=== PATIENT | male | born 1930 | race Caucasian/White ===

== ENCOUNTER 2021-05-24 23:32 | Inpatient (IN) | payer MEDICARE, MEDICAID ==
[2021-05-24] MEDS ORDERED: Norepinephrine 8 MG/0.9% NS 250 ML ONE (23:52)
[2021-05-25 00:01] LABS: Actual Bicarbonate (HCO3a) 19.5 mEq/L (22-28); Analyzer IN Cardio ER; Base Excess (BEa) -7.9 mEq/L (-2.0 to +3.0); CO2 Tension 49.2 mmHg (35.0-45.0); Calcium, Ionized (arterial) 1.04 mmol/L (1.12-1.30); Carboxyhemoglobin (COHb) 0.3 gm% (0.0-3.0); Hemoglobin (Hb) 8.8 g/dL (14.0-18.0); O2 Tension (PaO2), arterial 65.3 mmHg (> 60.0); Potassium - ABG Lab 3.49 mmol/L (3.70-5.30)
[2021-05-25 00:02] LABS: #Basophils 0.1 thou/uL (0.0-0.2); #Monocytes 0.1 thou/uL (0.11-0.59); #Neutrophils 3.7 thou/uL (1.40-6.50); %Basophils 1.2 % (0.0-1.0); %Eosinophils 0.2 % (0.0-10.0); %Lymphocytes 20.2 % (21.0-51.0); %Monocytes 2.9 % (0.0-10.0); %Neutrophils 75.5 % (42.0-75.0); Hemoglobin 8.9 g/dL (14.0-18.0); Mean Corpuscular HGB CONC 32.9 g/dL (32.0-36.0); Mean Corpuscular Hemoglobin 31.9 pg (27.0-31.0); Mean Platelet Volume 8.7 fL (7.4-10.4); Platelet Count 128 thou/uL (130-400); RBC Distribution Width 14.7 % (11.5-14.5); Red Blood Cell (RBC) Count 2.78 mill/uL (4.70-6.10); White Blood Cell (WBC) Count 4.8 thou/uL (4.8-10.8)
[2021-05-25 00:15] LABS: INR-International Normal Ratio 1.4; PTT 43.2 sec (22.9-36.1); Prothrombin Time 17.2 sec (12.0-14.7)
[2021-05-25 00:16] LABS: D-Dimer Test 0.67 *mcg/mL (0.27-0.43)
[2021-05-25 00:33] LABS: ALT (SGPT) 17 U/L (8-55); AST (SGOT) 33 U/L (5-34); Albumin 3.1 g/dL (3.4-4.8); Alkaline Phosphatase 80 U/L (40-110); Anion Gap 22 mmol/L (10-20); BUN (Urea Nitrogen) 67 mg/dL (8.4-25.7); Bilirubin, Total 0.3 mg/dL (0.2-1.2); CK (CPK) 287 U/L (30-200); Calc. Creatinine Clearance 0 mL/min (70-130); Calcium 8.2 mg/dL (7.8-10.44); Carbon Dioxide 19 mmol/L (23-31); Chloride 101 mmol/L (98-107); Globulin 4.7 g/dL (2.4-3.5); Glucose 297 mg/dL (83-110); Lipase 42 U/L (8-78); Magnesium 1.7 mg/dL (1.6-2.6); Potassium 3.6 mmol/L (3.5-5.1); Protein, Total 7.8 g/dL (5.8-8.1); Sodium 138 mmol/L (136-145)
[2021-05-25 00:47] LABS: CKMB 4.8 ng/mL (0-6.6)
[2021-05-25 01:02] LABS: Puncture Site LRA; pH, Arterial 7.22 (7.35-7.45)
[2021-05-25 01:02] LABS: Amphetamine Not Detected (NotDetected); Barbiturates Screen Not Detected (NotDetected); Benzodiazepine Screen Not Detected (NotDetected); Cocaine Metabolite Screen Not Detected (NotDetected); Methadone Not Detected (NotDetected); Methamphetamine Not Detected (NotDetected); Opiate Screen Not Detected (NotDetected); Oxycodone Screen Not Detected (NotDetected); Phencyclidine (PCP) Not Detected (NotDetected); THC/Cannabinoid Screen Not Detected (NotDetected); Tricyclic Screen Not Detected (NotDetected)
[2021-05-25 01:06] LABS: Bilirubin Negative (Negative); Blood, Urine 2+ (Negative); Clarity Turbid (Clear); Glucose, Urine (Dipstick) 30 mg/dL (Negative); Ketone, Urine Negative (Negative); Leukocyte Negative Leu/uL (Negative); Mucous/LPF Rare LPF (<2+); Nitrite Negative (Negative); Protein, Urine (Dipstick) 300 mg/dL (Neg-Trace); Specific Gravity, Urine 1.019 (1.002-1.036); Squamous Epithelial 0-3 HPF (0-3); Urobilinogen Normal mg/dL (Less than 2)
[2021-05-25 01:29] LABS: Bacteria/HPF 2+ HPF (None Seen)
[2021-05-25 01:42] LABS: SARS-CoV-2 NAA Rapid Test DETECTED (NotDetected)
[2021-05-25 02:03] LABS: Actual Bicarbonate (HCO3a) 22.5 mEq/L (22-28); Analyzer IN Cardio ER; Base Excess (BEa) -2.3 mEq/L (-2.0 to +3.0); CO2 Tension 38.9 mmHg (35.0-45.0); Calcium, Ionized (arterial) 1.03 mmol/L (1.12-1.30); Carboxyhemoglobin (COHb) 0.3 gm% (0.0-3.0); Hemoglobin (Hb) 9.2 g/dL (14.0-18.0); O2 Tension (PaO2), arterial 85.1 mmHg (> 60.0); Potassium - ABG Lab 3.61 mmol/L (3.70-5.30); pH, Arterial 7.38 (7.35-7.45)
[2021-05-25] MEDS ORDERED: cefTRIAXone\\ROCEPHIN 1 GM VIAL ONE (02:03)
[2021-05-25] MEDS ORDERED: Dexamethasone 10 MG/ML VIAL ONE (02:03)
[2021-05-25 02:08] LABS: Puncture Site RRA
[2021-05-25 02:09] LABS: ALV-art Gradient 579.275 mmHg (0-20)
[2021-05-25] MEDS ORDERED: Ondansetron PF 4 MG/2 ML Vial IVP PRN (03:09)
[2021-05-25 03:19] LABS: Lactic Acid 2.1 mmol/L (0.5-2.2)
[2021-05-25 07:44] LABS: #Lymphocytes 0.4 thou/uL (1.20-3.40); #Monocytes 0.1 thou/uL (0.11-0.59); #Neutrophils 3.4 thou/uL (1.40-6.50); %Basophils 0.4 % (0.0-1.0); %Eosinophils 0.2 % (0.0-10.0); %Lymphocytes 9.8 % (21.0-51.0); %Monocytes 2.2 % (0.0-10.0); %Neutrophils 87.4 % (42.0-75.0); Hemoglobin 9.6 g/dL (14.0-18.0); Mean Corpuscular HGB CONC 33.4 g/dL (32.0-36.0); Mean Corpuscular Hemoglobin 32.3 pg (27.0-31.0); Mean Corpuscular Volume 96.6 fL (78.0-98.0); Mean Platelet Volume 8.7 fL (7.4-10.4); Platelet Count 121 thou/uL (130-400); RBC Distribution Width 14.5 % (11.5-14.5); Red Blood Cell (RBC) Count 2.96 mill/uL (4.70-6.10); White Blood Cell (WBC) Count 3.9 thou/uL (4.8-10.8)
[2021-05-25 08:10] LABS: ALT (SGPT) 16 U/L (8-55); AST (SGOT) 32 U/L (5-34); Albumin 3.1 g/dL (3.4-4.8); Alkaline Phosphatase 80 U/L (40-110); Anion Gap 17 mmol/L (10-20); BUN (Urea Nitrogen) 63 mg/dL (8.4-25.7); Bilirubin, Total 0.3 mg/dL (0.2-1.2); Calc. Creatinine Clearance 22 mL/min (70-130); Calcium 7.9 mg/dL (7.8-10.44); Carbon Dioxide 24 mmol/L (23-31); Chloride 102 mmol/L (98-107); Globulin 4.7 g/dL (2.4-3.5); Glucose 270 mg/dL (83-110); Protein, Total 7.8 g/dL (5.8-8.1); Sodium 139 mmol/L (136-145)
[2021-05-25] MEDS ORDERED: Enoxaparin Sodium 30 MG/0.3 ML SYRINGE SC SCH (09:00)
[2021-05-25] MEDS ORDERED: Dexamethasone 10 MG in Sodium Chloride 0.9% 50 ML IVPB SCH (09:00)
[2021-05-25] MEDS ORDERED: Albumin 25% 25 GM/100 ML BOT IVPB SCH (09:30)
[2021-05-25] MEDS: Polyethylene Glycol 3350 17 GM Packet PER TUBE SCH (09:33)
[2021-05-25] MEDS: Senokot S 8.6-50 MG TAB PO SCH ×2 (09:33→21:24)
[2021-05-25] MEDS: Famotidine/PF 20 mg/2ml Vial SLOW IVP SCH (09:33)
[2021-05-25] MEDS: Albumin 25% 25 GM/100 ML BOT IVPB SCH ×3 (09:35→21:24)
[2021-05-25] MEDS ORDERED: Lorazepam 2 MG/ML VIAL ONE (10:19)
[2021-05-25] MEDS: Dexamethasone 10 MG/ML VIAL SLOW IVP SCH ×2 (11:37→21:30)
[2021-05-25] MEDS ORDERED: Lorazepam 2 MG/ML VIAL SLOW IVP SCH (11:45)
[2021-05-25] MEDS ORDERED: Fentanyl BOLUS 250 ML IVPB PRN (11:45)
[2021-05-25] MEDS ORDERED: Propofol BOLUS 1,000 MG/100 ML VIAL IV PRN (11:45)
[2021-05-25] MEDS ORDERED: Morphine 2 MG/ML VIAL SLOW IVP PRN (11:45)
[2021-05-25] MEDS ORDERED: Norepinephrine 8 MG/0.9% NS 250 ML IVPB SCH (11:45)
[2021-05-25] MEDS ORDERED: Vecuronium 10 MG VIAL IV PRN (12:29)
[2021-05-25] MEDS: Lorazepam 2 MG/ML VIAL SLOW IVP PRN ×3 (12:34→16:10)
[2021-05-25] MEDS: Propofol 1,000 MG/100 ML VIAL IV PRN ×2 (13:36→17:50)
[2021-05-25] MEDS: Fentanyl CADD 100 ML IV SCH (13:36)
[2021-05-25] MEDS: Vecuronium 10 MG VIAL IV PRN ×2 (13:40→21:31)
[2021-05-25] MEDS: HumaLOG 300 UNITS/3 ML VIAL SC PRN ×3 (14:28→21:52)
[2021-05-25 14:45] LABS: Hemoglobin A1c 8.4 % (4.0-6.0)
[2021-05-25 19:17] LABS: Legionella Urinary Ag Negative (Negative); Strep pneumo Urine Ag NEGATIVE (NEGATIVE)
[2021-05-25] MEDS: Sterile Water 10 ML ONE (22:24)
[2021-05-26] MEDS: Propofol 1,000 MG/100 ML VIAL IV PRN ×3 (00:51→22:46)
[2021-05-26] MEDS: HumaLOG 300 UNITS/3 ML VIAL SC PRN ×5 (01:11→23:21)
[2021-05-26] MEDS ORDERED: cefTRIAXone\\ROCEPHIN 2 GM in Sodium Chloride 0.9% 100 ML IVPB SCH (02:00)
[2021-05-26] MEDS: Albumin 25% 25 GM/100 ML BOT IVPB SCH ×4 (03:57→21:25)
[2021-05-26 04:41] LABS: #Lymphocytes 0.4 thou/uL (1.20-3.40); #Monocytes 0.1 thou/uL (0.11-0.59); #Neutrophils 11.5 thou/uL (1.40-6.50); %Lymphocytes 3.3 % (21.0-51.0); %Neutrophils 95.7 % (42.0-75.0); Hemoglobin 8.8 g/dL (14.0-18.0); Mean Corpuscular HGB CONC 33.5 g/dL (32.0-36.0); Mean Corpuscular Hemoglobin 32.2 pg (27.0-31.0); Mean Platelet Volume 9.4 fL (7.4-10.4); Platelet Count 145 thou/uL (130-400); RBC Distribution Width 14.5 % (11.5-14.5); Red Blood Cell (RBC) Count 2.73 mill/uL (4.70-6.10); White Blood Cell (WBC) Count 12.1 thou/uL (4.8-10.8)
[2021-05-26 05:06] LABS: ALT (SGPT) 12 U/L (8-55); AST (SGOT) 25 U/L (5-34); Albumin 3.6 g/dL (3.4-4.8); Alkaline Phosphatase 71 U/L (40-110); Anion Gap 17 mmol/L (10-20); BUN (Urea Nitrogen) 60 mg/dL (8.4-25.7); Bilirubin, Total 0.4 mg/dL (0.2-1.2); CRP (Inflammatory) 18.31 mg/dL (= or < 0.5); Calc. Creatinine Clearance 24 mL/min (70-130); Calcium 8.1 mg/dL (7.8-10.44); Carbon Dioxide 23 mmol/L (23-31); Chloride 104 mmol/L (98-107); Globulin 4.5 g/dL (2.4-3.5); Glucose 217 mg/dL (83-110); Magnesium 1.8 mg/dL (1.6-2.6); Potassium 3.5 mmol/L (3.5-5.1); Protein, Total 8.1 g/dL (5.8-8.1); Sodium 140 mmol/L (136-145)
[2021-05-26 05:15] LABS: Phosphorus 3.6 mg/dL (2.3-4.7)
[2021-05-26] MEDS: NPH, Human Insulin Isophane 300 UNIT/3 ML VIAL SC SCH ×2 (08:45→21:24)
[2021-05-26] MEDS: Famotidine/PF 20 mg/2ml Vial SLOW IVP SCH (09:15)
[2021-05-26] MEDS: Polyethylene Glycol 3350 17 GM Packet PER TUBE SCH (09:17)
[2021-05-26] MEDS: Cefepime 1 GM in Sodium Chloride 0.9% 100 ML IVPB SCH (09:17)
[2021-05-26] MEDS: Dexamethasone 10 MG/ML VIAL SLOW IVP SCH ×2 (09:17→21:25)
[2021-05-26] MEDS: Senokot S 8.6-50 MG TAB PO SCH ×2 (09:17→21:25)
[2021-05-26] MEDS: Aspirin Chewable 81 MG TAB PER TUBE SCH (09:17)
[2021-05-26] MEDS: Azithromycin 200 MG/5 ML Oral Suspension PER TUBE SCH (09:17)
[2021-05-26] MEDS: Lorazepam 2 MG/ML VIAL SLOW IVP PRN (10:24)
[2021-05-26] MEDS: Vecuronium 10 MG VIAL IV PRN ×3 (10:24→18:01)
[2021-05-26] MEDS ORDERED: Sterile Water 10 ML ONE (17:50)
[2021-05-26] MEDS: Sterile Water 10 ML ONE (18:01)
[2021-05-26] MEDS ORDERED: Carvedilol 3.125 MG TAB PER TUBE SCH ×2 (22:00)
[2021-05-27] MEDS: Albumin 25% 25 GM/100 ML BOT IVPB SCH ×2 (03:23→10:11)
[2021-05-27] MEDS: Fentanyl CADD 100 ML IV SCH (04:56)
[2021-05-27] MEDS: Propofol 1,000 MG/100 ML VIAL IV PRN ×3 (04:56→19:06)
[2021-05-27] MEDS: HumaLOG 300 UNITS/3 ML VIAL SC PRN ×3 (05:07→21:26)
[2021-05-27 05:11] LABS: Alkaline Phosphatase 64 U/L (40-110); Anion Gap 17 mmol/L (10-20); BUN (Urea Nitrogen) 61 mg/dL (8.4-25.7); Bilirubin, Total 0.4 mg/dL (0.2-1.2); Calc. Creatinine Clearance 26 mL/min (70-130); Calcium 8.4 mg/dL (7.8-10.44); Carbon Dioxide 26 mmol/L (23-31); Chloride 104 mmol/L (98-107); Globulin 4.1 g/dL (2.4-3.5); Glucose 251 mg/dL (83-110); Phosphorus 3.6 mg/dL (2.3-4.7); Potassium 3.6 mmol/L (3.5-5.1); Protein, Total 8.1 g/dL (5.8-8.1); Sodium 143 mmol/L (136-145)
[2021-05-27 05:49] LABS: ALT (SGPT) 12 U/L (8-55); AST (SGOT) 18 U/L (5-34); Magnesium 1.8 mg/dL (1.6-2.6)
[2021-05-27 06:13] LABS: Lymphocytes 8 % (21-51); MDiff Complete? YES; Mean Corpuscular HGB CONC 31.9 g/dL (32.0-36.0); Mean Corpuscular Volume 84.9 fL (78.0-98.0); Mean Platelet Volume 8.7 fL (7.4-10.4); Monocytes 2 % (0-10); Neutrophil 90 % (42-75); Platelet Count 268 thou/uL (130-400); Platelet Morphology Comment Appears Adequate; RBC Distribution Width 19.8 % (11.5-14.5); Red Blood Cell (RBC) Count 3.32 mill/uL (4.70-6.10); White Blood Cell (WBC) Count 14.4 thou/uL (4.8-10.8)
[2021-05-27 08:14] LABS: Actual Bicarbonate (HCO3a) 24.8 mEq/L (22-28); Base Excess (BEa) -0.7 mEq/L (-2.0 to +3.0); CO2 Tension 45.1 mmHg (35.0-45.0); Calcium, Ionized (arterial) 1.06 mmol/L (1.12-1.30); Carboxyhemoglobin (COHb) 0.8 gm% (0.0-3.0); Hemoglobin (Hb) 9.4 g/dL (14.0-18.0); Potassium - ABG Lab 3.76 mmol/L (3.70-5.30); pH, Arterial 7.36 (7.35-7.45)
[2021-05-27 08:17] LABS: O2 Tension (PaO2), arterial 50.7 mmHg (> 60.0); Puncture Site LRA
[2021-05-27 08:18] LABS: ALV-art Gradient 320.725 mmHg (0-20)
[2021-05-27] MEDS: Senokot S 8.6-50 MG TAB PO SCH ×2 (10:11→20:34)
[2021-05-27] MEDS: Dexamethasone 10 MG/ML VIAL SLOW IVP SCH ×2 (10:11→20:34)
[2021-05-27] MEDS: Cefepime 1 GM in Sodium Chloride 0.9% 100 ML IVPB SCH (10:12)
[2021-05-27] MEDS: Polyethylene Glycol 3350 17 GM Packet PER TUBE SCH (10:12)
[2021-05-27] MEDS: Aspirin Chewable 81 MG TAB PER TUBE SCH (10:12)
[2021-05-27] MEDS: Carvedilol 3.125 MG TAB PER TUBE SCH ×2 (10:12→17:02)
[2021-05-27] MEDS: Famotidine/PF 20 mg/2ml Vial SLOW IVP SCH (10:12)
[2021-05-27] MEDS: NPH, Human Insulin Isophane 300 UNIT/3 ML VIAL SC SCH ×3 (10:13→21:26)
[2021-05-27] MEDS: Azithromycin 200 MG/5 ML Oral Suspension PER TUBE SCH (10:13)
[2021-05-27] MEDS ORDERED: Sterile Water 10 ML ONE (11:30)
[2021-05-27] MEDS: Lorazepam 2 MG/ML VIAL SLOW IVP PRN (11:50)
[2021-05-27] MEDS: Vecuronium 10 MG VIAL IV PRN (11:51)
[2021-05-27] MEDS: Apixaban 2.5 MG TAB PER TUBE SCH (20:34)
[2021-05-28] MEDS: Propofol 1,000 MG/100 ML VIAL IV PRN ×5 (01:14→23:32)
[2021-05-28] MEDS: HumaLOG 300 UNITS/3 ML VIAL SC PRN ×4 (03:35→22:01)
[2021-05-28 05:01] LABS: #Lymphocytes 0.5 thou/uL (1.20-3.40); #Monocytes 0.2 thou/uL (0.11-0.59); #Neutrophils 9.7 thou/uL (1.40-6.50); %Basophils 0.1 % (0.0-1.0); %Eosinophils 0.4 % (0.0-10.0); %Lymphocytes 4.8 % (21.0-51.0); %Neutrophils 92.6 % (42.0-75.0); Hemoglobin 8.6 g/dL (14.0-18.0); Mean Corpuscular HGB CONC 34.5 g/dL (32.0-36.0); Mean Corpuscular Hemoglobin 32.6 pg (27.0-31.0); Mean Corpuscular Volume 94.6 fL (78.0-98.0); Mean Platelet Volume 9.3 fL (7.4-10.4); Platelet Count 174 thou/uL (130-400); RBC Distribution Width 14.7 % (11.5-14.5); Red Blood Cell (RBC) Count 2.64 mill/uL (4.70-6.10); White Blood Cell (WBC) Count 10.4 thou/uL (4.8-10.8)
[2021-05-28 05:18] LABS: ALT (SGPT) 12 U/L (8-55); AST (SGOT) 23 U/L (5-34); Albumin 3.8 g/dL (3.4-4.8); Alkaline Phosphatase 60 U/L (40-110); Anion Gap 17 mmol/L (10-20); BUN (Urea Nitrogen) 67 mg/dL (8.4-25.7); Bilirubin, Total 0.4 mg/dL (0.2-1.2); Calc. Creatinine Clearance 28 mL/min (70-130); Calcium 8.4 mg/dL (7.8-10.44); Carbon Dioxide 27 mmol/L (23-31); Chloride 106 mmol/L (98-107); Glucose 241 mg/dL (83-110); Magnesium 2.2 mg/dL (1.6-2.6); Phosphorus 3.2 mg/dL (2.3-4.7); Potassium 3.9 mmol/L (3.5-5.1); Protein, Total 7.8 g/dL (5.8-8.1); Sodium 146 mmol/L (136-145)
[2021-05-28 07:40] LABS: Actual Bicarbonate (HCO3a) 30.3 mEq/L (22-28); Base Excess (BEa) 4.8 mEq/L (-2.0 to +3.0); CO2 Tension 50.8 mmHg (35.0-45.0); Calcium, Ionized (arterial) 1.04 mmol/L (1.12-1.30); Carboxyhemoglobin (COHb) 0.5 gm% (0.0-3.0); Hemoglobin (Hb) 8.5 g/dL (14.0-18.0); Potassium - ABG Lab 3.87 mmol/L (3.70-5.30); pH, Arterial 7.39 (7.35-7.45)
[2021-05-28 08:21] LABS: O2 Tension (PaO2), arterial 57.2 mmHg (> 60.0); Puncture Site RRA
[2021-05-28] MEDS: Carvedilol 3.125 MG TAB PER TUBE SCH ×2 (08:37→16:01)
[2021-05-28] MEDS: Cefepime 1 GM in Sodium Chloride 0.9% 100 ML IVPB SCH (08:37)
[2021-05-28] MEDS: Aspirin Chewable 81 MG TAB PER TUBE SCH (08:37)
[2021-05-28] MEDS: Polyethylene Glycol 3350 17 GM Packet PER TUBE SCH (08:37)
[2021-05-28] MEDS: Senokot S 8.6-50 MG TAB PO SCH ×2 (08:37→21:14)
[2021-05-28] MEDS: Dexamethasone 10 MG/ML VIAL SLOW IVP SCH ×2 (08:37→21:20)
[2021-05-28] MEDS: Apixaban 2.5 MG TAB PER TUBE SCH ×2 (08:37→21:14)
[2021-05-28] MEDS: Azithromycin 200 MG/5 ML Oral Suspension PER TUBE SCH (08:38)
[2021-05-28] MEDS: Famotidine/PF 20 mg/2ml Vial SLOW IVP SCH (08:38)
[2021-05-28] MEDS ORDERED: FLU VACC QS2021-22(65YR UP)/PF 240 MCG/0.7 ML SYRINGE IM ONE (09:00)
[2021-05-28] MEDS: NPH, Human Insulin Isophane 300 UNIT/3 ML VIAL SC SCH ×2 (11:02→23:32)
[2021-05-28 11:15] LABS: Mycoplasma pneumoniae IgG AB Less than 100 U/mL (0-99); Mycoplasma pneumoniae IgM AB Less than 770 U/mL (0-769)
[2021-05-28] MEDS: Fentanyl CADD 100 ML IV SCH (12:43)
[2021-05-29 03:56] LABS: ALT (SGPT) 13 U/L (8-55); AST (SGOT) 17 U/L (5-34); Albumin 3.7 g/dL (3.4-4.8); Alkaline Phosphatase 59 U/L (40-110); Anion Gap 16 mmol/L (10-20); BUN (Urea Nitrogen) 73 mg/dL (8.4-25.7); Bilirubin, Total 0.4 mg/dL (0.2-1.2); Calc. Creatinine Clearance 33 mL/min (70-130); Calcium 8.6 mg/dL (7.8-10.44); Carbon Dioxide 29 mmol/L (23-31); Chloride 108 mmol/L (98-107); Globulin 4.2 g/dL (2.4-3.5); Glucose 171 mg/dL (83-110); Magnesium 2.3 mg/dL (1.6-2.6); Phosphorus 3.5 mg/dL (2.3-4.7); Potassium 4.1 mmol/L (3.5-5.1); Protein, Total 7.9 g/dL (5.8-8.1); Sodium 149 mmol/L (136-145)
[2021-05-29] MEDS: Propofol 1,000 MG/100 ML VIAL IV PRN ×4 (04:31→20:44)
[2021-05-29 05:17] LABS: Band 7 % (5-11); Hemoglobin 8.6 g/dL (14.0-18.0); Lymphocytes 3 % (21-51); MDiff Complete? YES; Mean Corpuscular HGB CONC 33.3 g/dL (32.0-36.0); Mean Corpuscular Hemoglobin 31.7 pg (27.0-31.0); Mean Corpuscular Volume 95.3 fL (78.0-98.0); Mean Platelet Volume 9.3 fL (7.4-10.4); Monocytes 2 % (0-10); Neutrophil 88 % (42-75); Platelet Count 211 thou/uL (130-400); RBC Distribution Width 14.5 % (11.5-14.5); White Blood Cell (WBC) Count 10.8 thou/uL (4.8-10.8)
[2021-05-29 07:13] LABS: Actual Bicarbonate (HCO3a) 25.7 mEq/L (22-28); Base Excess (BEa) 0.4 mEq/L (-2.0 to +3.0); Calcium, Ionized (arterial) 1.12 mmol/L (1.12-1.30); Carboxyhemoglobin (COHb) 1.2 gm% (0.0-3.0); Hemoglobin (Hb) 7.6 g/dL (14.0-18.0); O2 Tension (PaO2), arterial 78.9 mmHg (> 60.0); Potassium - ABG Lab 4.05 mmol/L (3.70-5.30); pH, Arterial 7.38 (7.35-7.45)
[2021-05-29 07:16] LABS: Puncture Site RRA
[2021-05-29] MEDS: Dexamethasone 10 MG/ML VIAL SLOW IVP SCH ×2 (08:10→20:47)
[2021-05-29] MEDS: Apixaban 2.5 MG TAB PER TUBE SCH ×2 (08:10→20:45)
[2021-05-29] MEDS: Senokot S 8.6-50 MG TAB PO SCH ×2 (08:10→20:44)
[2021-05-29] MEDS: Cefepime 1 GM in Sodium Chloride 0.9% 100 ML IVPB SCH (08:10)
[2021-05-29] MEDS: Famotidine/PF 20 mg/2ml Vial SLOW IVP SCH (08:10)
[2021-05-29] MEDS: Polyethylene Glycol 3350 17 GM Packet PER TUBE SCH (08:10)
[2021-05-29] MEDS: Aspirin Chewable 81 MG TAB PER TUBE SCH (08:10)
[2021-05-29] MEDS: Carvedilol 3.125 MG TAB PER TUBE SCH ×2 (09:53→16:31)
[2021-05-29] MEDS: NPH, Human Insulin Isophane 300 UNIT/3 ML VIAL SC SCH ×2 (11:37→23:02)
[2021-05-29] MEDS: HumaLOG 300 UNITS/3 ML VIAL SC PRN ×3 (11:39→22:18)
[2021-05-30] MEDS: Fentanyl CADD 100 ML IV SCH (02:10)
[2021-05-30] MEDS: Propofol 1,000 MG/100 ML VIAL IV PRN ×4 (02:26→18:00)
[2021-05-30 04:07] LABS: #Lymphocytes 0.4 thou/uL (1.20-3.40); #Monocytes 0.2 thou/uL (0.11-0.59); #Neutrophils 8.4 thou/uL (1.40-6.50); %Eosinophils 0.2 % (0.0-10.0); %Lymphocytes 4.7 % (21.0-51.0); %Monocytes 1.8 % (0.0-10.0); %Neutrophils 93.2 % (42.0-75.0); Hemoglobin 8.2 g/dL (14.0-18.0); Mean Corpuscular HGB CONC 33.4 g/dL (32.0-36.0); Mean Corpuscular Hemoglobin 31.9 pg (27.0-31.0); Mean Corpuscular Volume 95.6 fL (78.0-98.0); Mean Platelet Volume 9.5 fL (7.4-10.4); Platelet Count 211 thou/uL (130-400); RBC Distribution Width 14.6 % (11.5-14.5); Red Blood Cell (RBC) Count 2.56 mill/uL (4.70-6.10)
[2021-05-30 04:12] LABS: QuantiFERON-TB Gold Plus Indeterminate (Negative)
[2021-05-30 04:31] LABS: ALT (SGPT) 11 U/L (8-55); AST (SGOT) 14 U/L (5-34); Albumin 3.5 g/dL (3.4-4.8); Alkaline Phosphatase 58 U/L (40-110); Anion Gap 17 mmol/L (10-20); BUN (Urea Nitrogen) 87 mg/dL (8.4-25.7); Bilirubin, Total 0.4 mg/dL (0.2-1.2); Calc. Creatinine Clearance 34 mL/min (70-130); Calcium 8.7 mg/dL (7.8-10.44); Carbon Dioxide 27 mmol/L (23-31); Chloride 110 mmol/L (98-107); Glucose 212 mg/dL (83-110); Magnesium 2.6 mg/dL (1.6-2.6); Phosphorus 3.6 mg/dL (2.3-4.7); Potassium 4.2 mmol/L (3.5-5.1); Protein, Total 7.5 g/dL (5.8-8.1); Sodium 150 mmol/L (136-145)
[2021-05-30] MEDS: HumaLOG 300 UNITS/3 ML VIAL SC PRN ×3 (04:33→23:31)
[2021-05-30 08:09] LABS: Actual Bicarbonate (HCO3a) 28.3 mEq/L (22-28); Base Excess (BEa) 2.3 mEq/L (-2.0 to +3.0); CO2 Tension 51.3 mmHg (35.0-45.0); Carboxyhemoglobin (COHb) 0.3 gm% (0.0-3.0); Hemoglobin (Hb) 8.5 g/dL (14.0-18.0); O2 Tension (PaO2), arterial 78.9 mmHg (> 60.0); Potassium - ABG Lab 4.28 mmol/L (3.70-5.30); pH, Arterial 7.36 (7.35-7.45)
[2021-05-30] MEDS: Famotidine/PF 20 mg/2ml Vial SLOW IVP SCH (09:23)
[2021-05-30] MEDS: Cefepime 1 GM in Sodium Chloride 0.9% 100 ML IVPB SCH (09:23)
[2021-05-30] MEDS: Carvedilol 3.125 MG TAB PER TUBE SCH ×2 (09:23→15:51)
[2021-05-30] MEDS: Senokot S 8.6-50 MG TAB PO SCH ×2 (09:24→20:36)
[2021-05-30] MEDS: Dexamethasone 10 MG/ML VIAL SLOW IVP SCH ×2 (09:24→20:37)
[2021-05-30] MEDS: Polyethylene Glycol 3350 17 GM Packet PER TUBE SCH (09:24)
[2021-05-30] MEDS: Apixaban 2.5 MG TAB PER TUBE SCH ×2 (09:24→20:36)
[2021-05-30] MEDS: Aspirin Chewable 81 MG TAB PER TUBE SCH (09:24)
[2021-05-30] MEDS: NPH, Human Insulin Isophane 300 UNIT/3 ML VIAL SC SCH ×2 (10:59→22:56)
[2021-05-30] MEDS: Dextrose 5% in Water 1,000 ML IV SCH (22:55)
[2021-05-31] MEDS: Propofol 1,000 MG/100 ML VIAL IV PRN ×4 (00:08→14:41)
[2021-05-31 04:37] LABS: #Lymphocytes 0.4 thou/uL (1.20-3.40); #Monocytes 0.2 thou/uL (0.11-0.59); #Neutrophils 8.9 thou/uL (1.40-6.50); %Eosinophils 0.2 % (0.0-10.0); %Monocytes 2.1 % (0.0-10.0); %Neutrophils 93.7 % (42.0-75.0); Hemoglobin 8.4 g/dL (14.0-18.0); Mean Corpuscular HGB CONC 31.2 g/dL (32.0-36.0); Mean Corpuscular Hemoglobin 30.3 pg (27.0-31.0); Mean Corpuscular Volume 97.1 fL (78.0-98.0); Mean Platelet Volume 9.4 fL (7.4-10.4); Platelet Count 222 thou/uL (130-400); RBC Distribution Width 14.5 % (11.5-14.5); Red Blood Cell (RBC) Count 2.78 mill/uL (4.70-6.10); White Blood Cell (WBC) Count 9.5 thou/uL (4.8-10.8)
[2021-05-31 04:54] LABS: ALT (SGPT) 16 U/L (8-55); AST (SGOT) 18 U/L (5-34); Albumin 3.4 g/dL (3.4-4.8); Alkaline Phosphatase 57 U/L (40-110); Anion Gap 17 mmol/L (10-20); BUN (Urea Nitrogen) 100 mg/dL (8.4-25.7); Bilirubin, Total 0.4 mg/dL (0.2-1.2); Calc. Creatinine Clearance 34 mL/min (70-130); Calcium 8.4 mg/dL (7.8-10.44); Carbon Dioxide 28 mmol/L (23-31); Chloride 109 mmol/L (98-107); Glucose 215 mg/dL (83-110); Magnesium 2.6 mg/dL (1.6-2.6); Phosphorus 4.3 mg/dL (2.3-4.7); Potassium 4.6 mmol/L (3.5-5.1); Protein, Total 7.4 g/dL (5.8-8.1); Sodium 149 mmol/L (136-145)
[2021-05-31] MEDS: HumaLOG 300 UNITS/3 ML VIAL SC PRN ×3 (05:18→21:27)
[2021-05-31 07:55] LABS: Base Excess (BEa) 2.2 mEq/L (-2.0 to +3.0); Calcium, Ionized (arterial) 1.05 mmol/L (1.12-1.30); Carboxyhemoglobin (COHb) 0.4 gm% (0.0-3.0); Hemoglobin (Hb) 8.1 g/dL (14.0-18.0); O2 Tension (PaO2), arterial 79.5 mmHg (> 60.0); pH, Arterial 7.31 (7.35-7.45)
[2021-05-31 08:23] LABS: Puncture Site RRA
[2021-05-31] MEDS: Fentanyl CADD 100 ML IV SCH (08:32)
[2021-05-31] MEDS: Lorazepam 2 MG/ML VIAL SLOW IVP PRN ×2 (08:32→17:33)
[2021-05-31] MEDS: Cefepime 1 GM in Sodium Chloride 0.9% 100 ML IVPB SCH (08:32)
[2021-05-31] MEDS: Famotidine/PF 20 mg/2ml Vial SLOW IVP SCH (08:33)
[2021-05-31] MEDS: Apixaban 2.5 MG TAB PER TUBE SCH ×2 (08:33→21:04)
[2021-05-31] MEDS: Senokot S 8.6-50 MG TAB PO SCH ×2 (08:33→21:03)
[2021-05-31] MEDS: Aspirin Chewable 81 MG TAB PER TUBE SCH (08:33)
[2021-05-31] MEDS: Polyethylene Glycol 3350 17 GM Packet PER TUBE SCH (08:33)
[2021-05-31] MEDS: Carvedilol 3.125 MG TAB PER TUBE SCH ×2 (09:33→17:23)
[2021-05-31] MEDS: Dextrose 5% in Water 1,000 ML IV SCH ×2 (09:33→21:04)
[2021-05-31] MEDS: Dexamethasone 10 MG/ML VIAL SLOW IVP SCH ×2 (10:31→21:04)
[2021-05-31] MEDS: NPH, Human Insulin Isophane 300 UNIT/3 ML VIAL SC SCH ×2 (10:59→23:11)
[2021-06-01] MEDS: Propofol 1,000 MG/100 ML VIAL IV PRN ×5 (01:55→23:58)
[2021-06-01 04:31] LABS: #Lymphocytes 0.4 thou/uL (1.20-3.40); #Monocytes 0.2 thou/uL (0.11-0.59); #Neutrophils 7.5 thou/uL (1.40-6.50); %Eosinophils 0.4 % (0.0-10.0); %Lymphocytes 4.7 % (21.0-51.0); %Monocytes 2.5 % (0.0-10.0); %Neutrophils 92.5 % (42.0-75.0); Mean Corpuscular HGB CONC 31.1 g/dL (32.0-36.0); Mean Corpuscular Hemoglobin 30.4 pg (27.0-31.0); Mean Corpuscular Volume 97.7 fL (78.0-98.0); Mean Platelet Volume 9.1 fL (7.4-10.4); Platelet Count 216 thou/uL (130-400); RBC Distribution Width 14.6 % (11.5-14.5); Red Blood Cell (RBC) Count 2.63 mill/uL (4.70-6.10); White Blood Cell (WBC) Count 8.1 thou/uL (4.8-10.8)
[2021-06-01 05:03] LABS: ALT (SGPT) 15 U/L (8-55); AST (SGOT) 14 U/L (5-34); Albumin 3.2 g/dL (3.4-4.8); Alkaline Phosphatase 53 U/L (40-110); Anion Gap 13 mmol/L (10-20); BUN (Urea Nitrogen) 88 mg/dL (8.4-25.7); Bilirubin, Total 0.3 mg/dL (0.2-1.2); Calc. Creatinine Clearance 40 mL/min (70-130); Carbon Dioxide 29 mmol/L (23-31); Chloride 104 mmol/L (98-107); Globulin 3.8 g/dL (2.4-3.5); Glucose 386 mg/dL (83-110); Magnesium 2.3 mg/dL (1.6-2.6); Phosphorus 4.1 mg/dL (2.3-4.7); Potassium 4.8 mmol/L (3.5-5.1); Sodium 141 mmol/L (136-145)
[2021-06-01] MEDS: Lorazepam 2 MG/ML VIAL SLOW IVP PRN ×2 (05:05→15:44)
[2021-06-01] MEDS: HumaLOG 300 UNITS/3 ML VIAL SC PRN ×2 (05:05→22:26)
[2021-06-01] MEDS: Dextrose 5% in Water 1,000 ML IV SCH (05:05)
[2021-06-01 07:55] LABS: Actual Bicarbonate (HCO3a) 28.6 mEq/L (22-28); CO2 Tension 56.2 mmHg (35.0-45.0); Calcium, Ionized (arterial) 1.07 mmol/L (1.12-1.30); Carboxyhemoglobin (COHb) 0.1 gm% (0.0-3.0); Hemoglobin (Hb) 8.2 g/dL (14.0-18.0); O2 Tension (PaO2), arterial 80.1 mmHg (> 60.0); Potassium - ABG Lab 4.74 mmol/L (3.70-5.30); pH, Arterial 7.32 (7.35-7.45)
[2021-06-01 08:21] LABS: Puncture Site RRA
[2021-06-01] MEDS: Senokot S 8.6-50 MG TAB PO SCH ×2 (09:25→21:44)
[2021-06-01] MEDS: Aspirin Chewable 81 MG TAB PER TUBE SCH (09:25)
[2021-06-01] MEDS: Polyethylene Glycol 3350 17 GM Packet PER TUBE SCH (09:25)
[2021-06-01] MEDS: Famotidine/PF 20 mg/2ml Vial SLOW IVP SCH (09:26)
[2021-06-01] MEDS: Apixaban 2.5 MG TAB PER TUBE SCH ×2 (09:26→21:44)
[2021-06-01] MEDS: Dexamethasone 10 MG/ML VIAL SLOW IVP SCH ×2 (09:26→21:44)
[2021-06-01] MEDS: Cefepime 1 GM in Sodium Chloride 0.9% 100 ML IVPB SCH (09:28)
[2021-06-01] MEDS: Carvedilol 3.125 MG TAB PER TUBE SCH ×2 (10:19→17:13)
[2021-06-01] MEDS: NPH, Human Insulin Isophane 300 UNIT/3 ML VIAL SC SCH ×2 (10:52→22:25)
[2021-06-02] MEDS: HumaLOG 300 UNITS/3 ML VIAL SC PRN ×3 (04:15→22:43)
[2021-06-02] MEDS: Propofol 1,000 MG/100 ML VIAL IV PRN ×5 (05:48→22:48)
[2021-06-02 07:27] LABS: Actual Bicarbonate (HCO3a) 29.2 mEq/L (22-28); Base Excess (BEa) 2.3 mEq/L (-2.0 to +3.0); Calcium, Ionized (arterial) 1.11 mmol/L (1.12-1.30); Carboxyhemoglobin (COHb) 0.3 gm% (0.0-3.0); Hemoglobin (Hb) 9.5 g/dL (14.0-18.0); pH, Arterial 7.32 (7.35-7.45)
[2021-06-02 07:28] LABS: Puncture Site RRA
[2021-06-02] MEDS: Famotidine/PF 20 mg/2ml Vial SLOW IVP SCH (08:15)
[2021-06-02] MEDS: Polyethylene Glycol 3350 17 GM Packet PER TUBE SCH (08:15)
[2021-06-02] MEDS: Dexamethasone 10 MG/ML VIAL SLOW IVP SCH ×2 (08:15→20:40)
[2021-06-02] MEDS: Apixaban 2.5 MG TAB PER TUBE SCH ×2 (08:16→20:39)
[2021-06-02] MEDS: Carvedilol 3.125 MG TAB PER TUBE SCH ×2 (08:16→15:53)
[2021-06-02] MEDS: Aspirin Chewable 81 MG TAB PER TUBE SCH (08:16)
[2021-06-02] MEDS: Senokot S 8.6-50 MG TAB PO SCH ×2 (08:16→20:39)
[2021-06-02] MEDS: Cefepime 1 GM in Sodium Chloride 0.9% 100 ML IVPB SCH (08:18)
[2021-06-02 09:21] LABS: Anion Gap 10 mmol/L (10-20); BUN (Urea Nitrogen) 85 mg/dL (8.4-25.7); Calc. Creatinine Clearance 48 mL/min (70-130); Calcium 7.6 mg/dL (7.8-10.44); Carbon Dioxide 26 mmol/L (23-31); Chloride 110 mmol/L (98-107); Glucose 172 mg/dL (83-110); Potassium 4.3 mmol/L (3.5-5.1); Sodium 142 mmol/L (136-145)
[2021-06-02] MEDS: NPH, Human Insulin Isophane 300 UNIT/3 ML VIAL SC SCH ×2 (11:40→22:42)
[2021-06-03] MEDS: Propofol 1,000 MG/100 ML VIAL IV PRN ×5 (03:31→20:26)
[2021-06-03] MEDS: HumaLOG 300 UNITS/3 ML VIAL SC PRN ×4 (04:00→22:28)
[2021-06-03 04:48] LABS: #Lymphocytes 0.4 thou/uL (1.20-3.40); #Monocytes 0.4 thou/uL (0.11-0.59); #Neutrophils 8.9 thou/uL (1.40-6.50); %Eosinophils 0.3 % (0.0-10.0); %Lymphocytes 3.6 % (21.0-51.0); %Monocytes 4.5 % (0.0-10.0); %Neutrophils 91.6 % (42.0-75.0); Hemoglobin 7.6 g/dL (14.0-18.0); Mean Corpuscular HGB CONC 33.6 g/dL (32.0-36.0); Mean Corpuscular Hemoglobin 31.8 pg (27.0-31.0); Mean Corpuscular Volume 94.7 fL (78.0-98.0); Mean Platelet Volume 9.3 fL (7.4-10.4); Platelet Count 224 thou/uL (130-400); RBC Distribution Width 14.6 % (11.5-14.5); Red Blood Cell (RBC) Count 2.39 mill/uL (4.70-6.10); White Blood Cell (WBC) Count 9.7 thou/uL (4.8-10.8)
[2021-06-03 05:19] LABS: ALT (SGPT) 19 U/L (8-55); AST (SGOT) 14 U/L (5-34); Alkaline Phosphatase 53 U/L (40-110); Anion Gap 12 mmol/L (10-20); BUN (Urea Nitrogen) 101 mg/dL (8.4-25.7); Bilirubin, Total 0.4 mg/dL (0.2-1.2); Calc. Creatinine Clearance 46 mL/min (70-130); Calcium 8.1 mg/dL (7.8-10.44); Carbon Dioxide 30 mmol/L (23-31); Chloride 106 mmol/L (98-107); Globulin 3.8 g/dL (2.4-3.5); Glucose 188 mg/dL (83-110); Magnesium 2.3 mg/dL (1.6-2.6); Potassium 4.8 mmol/L (3.5-5.1); Protein, Total 6.8 g/dL (5.8-8.1); Sodium 143 mmol/L (136-145)
[2021-06-03 07:50] LABS: Actual Bicarbonate (HCO3a) 27.8 mEq/L (22-28); Base Excess (BEa) 2.4 mEq/L (-2.0 to +3.0); CO2 Tension 47.4 mmHg (35.0-45.0); Calcium, Ionized (arterial) 1.09 mmol/L (1.12-1.30); Carboxyhemoglobin (COHb) 0.3 gm% (0.0-3.0); Hemoglobin (Hb) 8.9 g/dL (14.0-18.0); O2 Tension (PaO2), arterial 68.4 mmHg (> 60.0); Potassium - ABG Lab 4.57 mmol/L (3.70-5.30); pH, Arterial 7.39 (7.35-7.45)
[2021-06-03] MEDS: Famotidine/PF 20 mg/2ml Vial SLOW IVP SCH (08:05)
[2021-06-03] MEDS: Senokot S 8.6-50 MG TAB PO SCH ×2 (08:05→20:25)
[2021-06-03 08:06] LABS: Puncture Site RRA
[2021-06-03] MEDS: Aspirin Chewable 81 MG TAB PER TUBE SCH (08:06)
[2021-06-03] MEDS: Polyethylene Glycol 3350 17 GM Packet PER TUBE SCH (08:06)
[2021-06-03] MEDS: Carvedilol 3.125 MG TAB PER TUBE SCH ×2 (08:06→16:14)
[2021-06-03] MEDS: Apixaban 2.5 MG TAB PER TUBE SCH ×2 (08:06→20:26)
[2021-06-03] MEDS: Cefepime 1 GM in Sodium Chloride 0.9% 100 ML IVPB SCH (08:10)
[2021-06-03] MEDS: Dexamethasone 10 MG/ML VIAL SLOW IVP SCH ×2 (08:14→20:25)
[2021-06-03] MEDS: NPH, Human Insulin Isophane 300 UNIT/3 ML VIAL SC SCH ×2 (11:38→22:28)
[2021-06-03] MEDS: Sodium Chloride 0.45% 1,000 ML IV SCH (14:21)
[2021-06-04] MEDS: Propofol 1,000 MG/100 ML VIAL IV PRN ×6 (04:32→23:08)
[2021-06-04] MEDS: Aspirin Chewable 81 MG TAB PER TUBE SCH (08:51)
[2021-06-04] MEDS: Apixaban 2.5 MG TAB PER TUBE SCH ×2 (08:52→20:30)
[2021-06-04] MEDS: Polyethylene Glycol 3350 17 GM Packet PER TUBE SCH (08:52)
[2021-06-04] MEDS: Famotidine/PF 20 mg/2ml Vial SLOW IVP SCH (08:52)
[2021-06-04] MEDS: Senokot S 8.6-50 MG TAB PO SCH ×2 (08:52→20:30)
[2021-06-04] MEDS: Dexamethasone 10 MG/ML VIAL SLOW IVP SCH ×2 (08:52→20:30)
[2021-06-04] MEDS: Carvedilol 3.125 MG TAB PER TUBE SCH ×2 (08:52→16:12)
[2021-06-04] MEDS: Cefepime 1 GM in Sodium Chloride 0.9% 100 ML IVPB SCH (08:52)
[2021-06-04] MEDS: Sodium Chloride 0.45% 1,000 ML IV SCH (08:56)
[2021-06-04 09:00] LABS: #Lymphocytes 0.4 thou/uL (1.20-3.40); #Monocytes 0.2 thou/uL (0.11-0.59); #Neutrophils 6.6 thou/uL (1.40-6.50); %Eosinophils 0.3 % (0.0-10.0); %Lymphocytes 5.4 % (21.0-51.0); %Monocytes 2.9 % (0.0-10.0); %Neutrophils 91.4 % (42.0-75.0); Hemoglobin 7.5 g/dL (14.0-18.0); Mean Corpuscular HGB CONC 31.9 g/dL (32.0-36.0); Mean Corpuscular Hemoglobin 30.6 pg (27.0-31.0); Mean Corpuscular Volume 95.9 fL (78.0-98.0); Mean Platelet Volume 9.1 fL (7.4-10.4); Platelet Count 214 thou/uL (130-400); RBC Distribution Width 14.6 % (11.5-14.5); Red Blood Cell (RBC) Count 2.45 mill/uL (4.70-6.10); White Blood Cell (WBC) Count 7.2 thou/uL (4.8-10.8)
[2021-06-04 09:31] LABS: ALT (SGPT) 21 U/L (8-55); AST (SGOT) 14 U/L (5-34); Albumin 2.8 g/dL (3.4-4.8); Alkaline Phosphatase 50 U/L (40-110); Anion Gap 18 mmol/L (10-20); BUN (Urea Nitrogen) 109 mg/dL (8.4-25.7); Bilirubin, Total 0.3 mg/dL (0.2-1.2); Calc. Creatinine Clearance 47 mL/min (70-130); Calcium 8.4 mg/dL (7.8-10.44); Carbon Dioxide 21 mmol/L (23-31); Chloride 107 mmol/L (98-107); Glucose 191 mg/dL (83-110); Magnesium 2.2 mg/dL (1.6-2.6); Potassium 5.2 mmol/L (3.5-5.1); Protein, Total 6.8 g/dL (5.8-8.1); Sodium 141 mmol/L (136-145)
[2021-06-04] MEDS: HumaLOG 300 UNITS/3 ML VIAL SC PRN (10:15)
[2021-06-04] MEDS: NPH, Human Insulin Isophane 300 UNIT/3 ML VIAL SC SCH ×2 (11:18→23:21)
[2021-06-05] MEDS: Propofol 1,000 MG/100 ML VIAL IV PRN ×5 (02:21→20:51)
[2021-06-05] MEDS: HumaLOG 300 UNITS/3 ML VIAL SC PRN ×4 (03:30→22:11)
[2021-06-05 04:15] LABS: Band 2 % (5-11); Hemoglobin 8.3 g/dL (14.0-18.0); Hypochromia SLIGHT = 6-15 cells (100X) (0-5/hpf); Lymphocytes 6 % (21-51); MDiff Complete? YES; Mean Corpuscular HGB CONC 33.5 g/dL (32.0-36.0); Mean Corpuscular Hemoglobin 32.1 pg (27.0-31.0); Mean Corpuscular Volume 95.8 fL (78.0-98.0); Mean Platelet Volume 9.6 fL (7.4-10.4); Monocytes 3 % (0-10); Neutrophil 89 % (42-75); Platelet Count 214 thou/uL (130-400); Platelet Morphology Comment Appears Adequate; RBC Distribution Width 14.6 % (11.5-14.5); Red Blood Cell (RBC) Count 2.58 mill/uL (4.70-6.10); White Blood Cell (WBC) Count 11.1 thou/uL (4.8-10.8)
[2021-06-05 04:21] LABS: ALT (SGPT) 21 U/L (8-55); AST (SGOT) 16 U/L (5-34); Albumin 3.1 g/dL (3.4-4.8); Alkaline Phosphatase 58 U/L (40-110); Anion Gap 16 mmol/L (10-20); BUN (Urea Nitrogen) 116 mg/dL (8.4-25.7); Bilirubin, Total 0.4 mg/dL (0.2-1.2); Calc. Creatinine Clearance 50 mL/min (70-130); Calcium 8.3 mg/dL (7.8-10.44); Carbon Dioxide 26 mmol/L (23-31); Chloride 105 mmol/L (98-107); Glucose 172 mg/dL (83-110); Magnesium 2.3 mg/dL (1.6-2.6); Potassium 4.9 mmol/L (3.5-5.1); Protein, Total 7.1 g/dL (5.8-8.1); Sodium 142 mmol/L (136-145)
[2021-06-05] MEDS: Sodium Chloride 0.45% 1,000 ML IV SCH ×2 (05:07→23:44)
[2021-06-05 07:49] LABS: Actual Bicarbonate (HCO3a) 26.6 mEq/L (22-28); Base Excess (BEa) 1.3 mEq/L (-2.0 to +3.0); CO2 Tension 45.3 mmHg (35.0-45.0); Calcium, Ionized (arterial) 1.11 mmol/L (1.12-1.30); Carboxyhemoglobin (COHb) 0.3 gm% (0.0-3.0); Hemoglobin (Hb) 8.4 g/dL (14.0-18.0); O2 Tension (PaO2), arterial 75.4 mmHg (> 60.0); Potassium - ABG Lab 4.69 mmol/L (3.70-5.30); pH, Arterial 7.39 (7.35-7.45)
[2021-06-05 07:52] LABS: ALV-art Gradient 153.175 mmHg (0-20); Puncture Site LRA
[2021-06-05] MEDS: Dexamethasone 10 MG/ML VIAL SLOW IVP SCH (08:46)
[2021-06-05] MEDS: Famotidine/PF 20 mg/2ml Vial SLOW IVP SCH (08:46)
[2021-06-05] MEDS: Apixaban 2.5 MG TAB PER TUBE SCH ×2 (08:46→20:51)
[2021-06-05] MEDS: Aspirin Chewable 81 MG TAB PER TUBE SCH (08:46)
[2021-06-05] MEDS: Carvedilol 3.125 MG TAB PER TUBE SCH ×2 (08:47→16:58)
[2021-06-05] MEDS: Polyethylene Glycol 3350 17 GM Packet PER TUBE SCH (08:48)
[2021-06-05] MEDS: Senokot S 8.6-50 MG TAB PO SCH ×2 (08:48→20:51)
[2021-06-05] MEDS: Cefepime 1 GM in Sodium Chloride 0.9% 100 ML IVPB SCH (08:52)
[2021-06-05] MEDS: NPH, Human Insulin Isophane 300 UNIT/3 ML VIAL SC SCH ×2 (09:24→21:30)
[2021-06-06] MEDS: Propofol 1,000 MG/100 ML VIAL IV PRN ×2 (03:02→15:31)
[2021-06-06 04:53] LABS: ALT (SGPT) 25 U/L (8-55); AST (SGOT) 17 U/L (5-34); Albumin 2.9 g/dL (3.4-4.8); Alkaline Phosphatase 54 U/L (40-110); Anion Gap 14 mmol/L (10-20); BUN (Urea Nitrogen) 110 mg/dL (8.4-25.7); Bilirubin, Total 0.3 mg/dL (0.2-1.2); Calc. Creatinine Clearance 52 mL/min (70-130); Calcium 8.5 mg/dL (7.8-10.44); Carbon Dioxide 26 mmol/L (23-31); Chloride 107 mmol/L (98-107); Globulin 3.8 g/dL (2.4-3.5); Glucose 124 mg/dL (83-110); Magnesium 2.1 mg/dL (1.6-2.6); Potassium 4.3 mmol/L (3.5-5.1); Protein, Total 6.7 g/dL (5.8-8.1); Sodium 143 mmol/L (136-145)
[2021-06-06 05:17] LABS: Band 1 % (5-11); Elliptocytes SLIGHT = 2-5 cells (100X) (0-1/hpf); Hemoglobin 7.5 g/dL (14.0-18.0); Hypochromia SLIGHT = 6-15 cells (100X) (0-5/hpf); Lymphocytes 6 % (21-51); MDiff Complete? YES; Mean Corpuscular HGB CONC 33.9 g/dL (32.0-36.0); Mean Corpuscular Hemoglobin 32.3 pg (27.0-31.0); Mean Corpuscular Volume 95.1 fL (78.0-98.0); Mean Platelet Volume 9.7 fL (7.4-10.4); Monocytes 7 % (0-10); Myelocyte 1 % (0-0); Neutrophil 85 % (42-75); Platelet Count 217 thou/uL (130-400); Platelet Morphology Comment Appears Adequate; Polychromasia SLIGHT = 2-3 cells (100X) (0-2/hpf); RBC Distribution Width 14.7 % (11.5-14.5); Red Blood Cell (RBC) Count 2.31 mill/uL (4.70-6.10); White Blood Cell (WBC) Count 9.5 thou/uL (4.8-10.8)
[2021-06-06 07:53] LABS: Actual Bicarbonate (HCO3a) 26.8 mEq/L (22-28); Base Excess (BEa) 1.7 mEq/L (-2.0 to +3.0); CO2 Tension 45.2 mmHg (35.0-45.0); Calcium, Ionized (arterial) 1.14 mmol/L (1.12-1.30); Carboxyhemoglobin (COHb) 0.1 gm% (0.0-3.0); Hemoglobin (Hb) 6.5 g/dL (14.0-18.0); O2 Tension (PaO2), arterial 69.2 mmHg (> 60.0); Potassium - ABG Lab 4.15 mmol/L (3.70-5.30); pH, Arterial 7.39 (7.35-7.45)
[2021-06-06 07:56] LABS: Puncture Site LRA
[2021-06-06] MEDS: Aspirin Chewable 81 MG TAB PER TUBE SCH (08:25)
[2021-06-06] MEDS: Apixaban 2.5 MG TAB PER TUBE SCH ×2 (08:26→21:11)
[2021-06-06] MEDS: Senokot S 8.6-50 MG TAB PO SCH ×2 (08:26→21:11)
[2021-06-06] MEDS: Carvedilol 3.125 MG TAB PER TUBE SCH ×2 (08:26→16:22)
[2021-06-06] MEDS: Famotidine/PF 20 mg/2ml Vial SLOW IVP SCH (08:27)
[2021-06-06] MEDS: Polyethylene Glycol 3350 17 GM Packet PER TUBE SCH (08:27)
[2021-06-06] MEDS: Dexamethasone 10 MG/ML VIAL SLOW IVP SCH (08:28)
[2021-06-06] MEDS ORDERED: Dexamethasone 10 MG/ML VIAL SLOW IVP SCH (09:00)
[2021-06-06] MEDS: NPH, Human Insulin Isophane 300 UNIT/3 ML VIAL SC SCH (10:58)
[2021-06-06] MEDS: Dextrose 50% Abboject 50 ML SYRINGE ONE ×2 (13:36→14:15)
[2021-06-06] MEDS ORDERED: Dextrose 50% Abboject 50 ML SYRINGE IVP PRN (14:00)
[2021-06-06] MEDS ORDERED: Dextrose 5% in Water 1,000 ML IV PRN (14:00)
[2021-06-06] MEDS: Sodium Chloride 0.45% 1,000 ML IV SCH (18:07)
[2021-06-06] MEDS: Guaifenesin DM 100-10/5 ML UDCUP PO PRN (18:08)
[2021-06-07] MEDS: Propofol 1,000 MG/100 ML VIAL IV PRN (03:22)
[2021-06-07 04:09] LABS: #Lymphocytes 0.8 thou/uL (1.20-3.40); #Monocytes 0.4 thou/uL (0.11-0.59); %Basophils 0.2 % (0.0-1.0); %Eosinophils 0.4 % (0.0-10.0); %Lymphocytes 8.9 % (21.0-51.0); %Monocytes 4.2 % (0.0-10.0); %Neutrophils 86.3 % (42.0-75.0); Hemoglobin 7.8 g/dL (14.0-18.0); Mean Corpuscular HGB CONC 33.9 g/dL (32.0-36.0); Mean Corpuscular Hemoglobin 32.3 pg (27.0-31.0); Mean Corpuscular Volume 95.3 fL (78.0-98.0); Mean Platelet Volume 9.4 fL (7.4-10.4); Platelet Count 217 thou/uL (130-400); RBC Distribution Width 14.7 % (11.5-14.5); Red Blood Cell (RBC) Count 2.43 mill/uL (4.70-6.10); White Blood Cell (WBC) Count 9.3 thou/uL (4.8-10.8)
[2021-06-07 04:30] LABS: ALT (SGPT) 23 U/L (8-55); AST (SGOT) 16 U/L (5-34); Albumin 2.9 g/dL (3.4-4.8); Alkaline Phosphatase 57 U/L (40-110); Anion Gap 11 mmol/L (10-20); BUN (Urea Nitrogen) 99 mg/dL (8.4-25.7); Bilirubin, Total 0.3 mg/dL (0.2-1.2); Calc. Creatinine Clearance 58 mL/min (70-130); Calcium 8.8 mg/dL (7.8-10.44); Carbon Dioxide 28 mmol/L (23-31); Chloride 108 mmol/L (98-107); Globulin 3.7 g/dL (2.4-3.5); Glucose 105 mg/dL (83-110); Potassium 4.4 mmol/L (3.5-5.1); Protein, Total 6.6 g/dL (5.8-8.1); Sodium 143 mmol/L (136-145)
[2021-06-07 07:01] LABS: Actual Bicarbonate (HCO3a) 27.3 mEq/L (22-28); Base Excess (BEa) 2.5 mEq/L (-2.0 to +3.0); CO2 Tension 43.6 mmHg (35.0-45.0); Calcium, Ionized (arterial) 1.14 mmol/L (1.12-1.30); Carboxyhemoglobin (COHb) 0.4 gm% (0.0-3.0); O2 Tension (PaO2), arterial 60.1 mmHg (> 60.0); Potassium - ABG Lab 4.09 mmol/L (3.70-5.30); pH, Arterial 7.42 (7.35-7.45)
[2021-06-07 07:07] LABS: Puncture Site RRA
[2021-06-07] MEDS ORDERED: DC Sedation Protocol FS ONE (07:45)
[2021-06-07] MEDS: Carvedilol 3.125 MG TAB PER TUBE SCH ×2 (07:55→16:59)
[2021-06-07] MEDS: Famotidine/PF 20 mg/2ml Vial SLOW IVP SCH (08:02)
[2021-06-07] MEDS: Dexamethasone 10 MG/ML VIAL SLOW IVP SCH (08:02)
[2021-06-07] MEDS: Aspirin Chewable 81 MG TAB PER TUBE SCH (08:03)
[2021-06-07] MEDS: Senokot S 8.6-50 MG TAB PO SCH ×2 (08:03→20:09)
[2021-06-07] MEDS: Apixaban 2.5 MG TAB PER TUBE SCH ×2 (08:03→20:09)
[2021-06-07] MEDS: Polyethylene Glycol 3350 17 GM Packet PER TUBE SCH (08:45)
[2021-06-07] MEDS: Guaifenesin DM 100-10/5 ML UDCUP PO PRN (08:51)
[2021-06-07] MEDS: Sodium Chloride 0.45% 1,000 ML IV SCH (16:59)
[2021-06-08 05:38] LABS: #Eosinphils 0.1 thou/uL (0.0-0.7); #Lymphocytes 0.8 thou/uL (1.20-3.40); #Monocytes 0.7 thou/uL (0.11-0.59); #Neutrophils 8.5 thou/uL (1.40-6.50); %Basophils 0.1 % (0.0-1.0); %Eosinophils 0.9 % (0.0-10.0); %Lymphocytes 8.2 % (21.0-51.0); %Monocytes 6.5 % (0.0-10.0); %Neutrophils 84.3 % (42.0-75.0); Hemoglobin 8.3 g/dL (14.0-18.0); Mean Corpuscular HGB CONC 33.6 g/dL (32.0-36.0); Mean Corpuscular Hemoglobin 31.9 pg (27.0-31.0); Mean Platelet Volume 9.4 fL (7.4-10.4); Platelet Count 225 thou/uL (130-400); RBC Distribution Width 14.6 % (11.5-14.5); White Blood Cell (WBC) Count 10.1 thou/uL (4.8-10.8)
[2021-06-08 06:09] LABS: ALT (SGPT) 27 U/L (8-55); AST (SGOT) 20 U/L (5-34); Albumin 2.9 g/dL (3.4-4.8); Alkaline Phosphatase 61 U/L (40-110); Anion Gap 11 mmol/L (10-20); BUN (Urea Nitrogen) 89 mg/dL (8.4-25.7); Bilirubin, Total 0.4 mg/dL (0.2-1.2); Calc. Creatinine Clearance 55 mL/min (70-130); Calcium 8.9 mg/dL (7.8-10.44); Carbon Dioxide 29 mmol/L (23-31); Chloride 108 mmol/L (98-107); Globulin 3.9 g/dL (2.4-3.5); Glucose 88 mg/dL (83-110); Magnesium 1.8 mg/dL (1.6-2.6); Protein, Total 6.8 g/dL (5.8-8.1); Sodium 144 mmol/L (136-145)
[2021-06-08] MEDS: Polyethylene Glycol 3350 17 GM Packet PER TUBE SCH (09:18)
[2021-06-08] MEDS: Dexamethasone 10 MG/ML VIAL SLOW IVP SCH (09:18)
[2021-06-08] MEDS: Aspirin Chewable 81 MG TAB PER TUBE SCH (09:18)
[2021-06-08] MEDS: Carvedilol 3.125 MG TAB PER TUBE SCH ×2 (09:18→18:18)
[2021-06-08] MEDS: Famotidine/PF 20 mg/2ml Vial SLOW IVP SCH (09:18)
[2021-06-08] MEDS: Senokot S 8.6-50 MG TAB PO SCH ×2 (09:18→20:35)
[2021-06-08] MEDS: Apixaban 2.5 MG TAB PER TUBE SCH ×2 (09:18→20:35)
[2021-06-08] MEDS: Sodium Chloride 0.45% 1,000 ML IV SCH (14:58)
[2021-06-09 03:40] LABS: #Lymphocytes 0.8 thou/uL (1.20-3.40); #Monocytes 0.2 thou/uL (0.11-0.59); #Neutrophils 9.3 thou/uL (1.40-6.50); %Basophils 0.2 % (0.0-1.0); %Eosinophils 0.4 % (0.0-10.0); %Lymphocytes 7.4 % (21.0-51.0); Mean Corpuscular HGB CONC 33.6 g/dL (32.0-36.0); Mean Corpuscular Hemoglobin 31.3 pg (27.0-31.0); Mean Corpuscular Volume 93.2 fL (78.0-98.0); Mean Platelet Volume 9.1 fL (7.4-10.4); Platelet Count 219 thou/uL (130-400); RBC Distribution Width 14.4 % (11.5-14.5); Red Blood Cell (RBC) Count 2.87 mill/uL (4.70-6.10); White Blood Cell (WBC) Count 10.4 thou/uL (4.8-10.8)
[2021-06-09 03:58] LABS: ALT (SGPT) 24 U/L (8-55); AST (SGOT) 20 U/L (5-34); Alkaline Phosphatase 71 U/L (40-110); Anion Gap 16 mmol/L (10-20); BUN (Urea Nitrogen) 71 mg/dL (8.4-25.7); Bilirubin, Total 0.5 mg/dL (0.2-1.2); Calc. Creatinine Clearance 55 mL/min (70-130); Calcium 9.3 mg/dL (7.8-10.44); Carbon Dioxide 25 mmol/L (23-31); Chloride 108 mmol/L (98-107); Globulin 4.1 g/dL (2.4-3.5); Glucose 121 mg/dL (83-110); Magnesium 1.7 mg/dL (1.6-2.6); Potassium 4.3 mmol/L (3.5-5.1); Protein, Total 7.1 g/dL (5.8-8.1); Sodium 145 mmol/L (136-145)
[2021-06-09] MEDS: Senokot S 8.6-50 MG TAB PO SCH ×2 (09:11→21:58)
[2021-06-09] MEDS: Aspirin Chewable 81 MG TAB PER TUBE SCH (09:11)
[2021-06-09] MEDS: Apixaban 2.5 MG TAB PER TUBE SCH ×2 (09:11→21:58)
[2021-06-09] MEDS: Famotidine/PF 20 mg/2ml Vial SLOW IVP SCH (09:11)
[2021-06-09] MEDS: Dexamethasone 10 MG/ML VIAL SLOW IVP SCH (09:11)
[2021-06-09] MEDS: Polyethylene Glycol 3350 17 GM Packet PER TUBE SCH (09:11)
[2021-06-09] MEDS: Carvedilol 3.125 MG TAB PER TUBE SCH ×2 (09:12→17:29)
[2021-06-09] MEDS: Sodium Chloride 0.45% 1,000 ML IV SCH (09:14)
[2021-06-09] MEDS: HumaLOG 300 UNITS/3 ML VIAL SC PRN (22:25)
[2021-06-10] MEDS: Acetaminophen 325 MG TAB PER TUBE PRN (03:00)
[2021-06-10] MEDS: HumaLOG 300 UNITS/3 ML VIAL SC PRN ×2 (04:30→23:11)
[2021-06-10] MEDS: Sodium Chloride 0.45% 1,000 ML IV SCH ×3 (05:00→22:01)
[2021-06-10 05:37] LABS: Band 6 % (5-11); Hemoglobin 8.8 g/dL (14.0-18.0); Lymphocytes 4 % (21-51); MDiff Complete? YES; Mean Corpuscular HGB CONC 33.7 g/dL (32.0-36.0); Mean Corpuscular Hemoglobin 31.5 pg (27.0-31.0); Mean Corpuscular Volume 93.4 fL (78.0-98.0); Mean Platelet Volume 9.5 fL (7.4-10.4); Monocytes 4 % (0-10); Neutrophil 86 % (42-75); Platelet Count 203 thou/uL (130-400); Platelet Morphology Comment Appears Adequate; RBC Morphology Normal; White Blood Cell (WBC) Count 18.7 thou/uL (4.8-10.8)
[2021-06-10 05:39] LABS: ALT (SGPT) 31 U/L (8-55); AST (SGOT) 30 U/L (5-34); Alkaline Phosphatase 91 U/L (40-110); Anion Gap 15 mmol/L (10-20); BUN (Urea Nitrogen) 68 mg/dL (8.4-25.7); Bilirubin, Total 0.7 mg/dL (0.2-1.2); Calc. Creatinine Clearance 42 mL/min (70-130); Calcium 9.4 mg/dL (7.8-10.44); Carbon Dioxide 26 mmol/L (23-31); Chloride 109 mmol/L (98-107); Globulin 4.1 g/dL (2.4-3.5); Glucose 251 mg/dL (83-110); Magnesium 1.7 mg/dL (1.6-2.6); Potassium 4.3 mmol/L (3.5-5.1); Protein, Total 7.1 g/dL (5.8-8.1); Sodium 146 mmol/L (136-145)
[2021-06-10] MEDS: Dexamethasone 10 MG/ML VIAL SLOW IVP SCH (08:59)
[2021-06-10] MEDS: Aspirin Chewable 81 MG TAB PER TUBE SCH (09:00)
[2021-06-10] MEDS: Carvedilol 3.125 MG TAB PER TUBE SCH ×2 (09:00→16:19)
[2021-06-10] MEDS: Senokot S 8.6-50 MG TAB PO SCH ×2 (09:00→21:26)
[2021-06-10] MEDS: Famotidine/PF 20 mg/2ml Vial SLOW IVP SCH (09:00)
[2021-06-10] MEDS: Polyethylene Glycol 3350 17 GM Packet PER TUBE SCH (09:00)
[2021-06-10] MEDS: Apixaban 2.5 MG TAB PER TUBE SCH ×2 (09:00→21:26)
[2021-06-11] MEDS: HumaLOG 300 UNITS/3 ML VIAL SC PRN ×3 (04:23→22:56)
[2021-06-11 04:48] LABS: #Lymphocytes 0.7 thou/uL (1.20-3.40); #Monocytes 0.3 thou/uL (0.11-0.59); #Neutrophils 10.1 thou/uL (1.40-6.50); %Basophils 0.1 % (0.0-1.0); %Eosinophils 0.1 % (0.0-10.0); %Lymphocytes 6.2 % (21.0-51.0); %Monocytes 2.4 % (0.0-10.0); %Neutrophils 91.3 % (42.0-75.0); Hemoglobin 8.6 g/dL (14.0-18.0); Mean Corpuscular HGB CONC 32.7 g/dL (32.0-36.0); Mean Corpuscular Hemoglobin 31.2 pg (27.0-31.0); Mean Corpuscular Volume 95.3 fL (78.0-98.0); Mean Platelet Volume 9.3 fL (7.4-10.4); Platelet Count 208 thou/uL (130-400); RBC Distribution Width 14.5 % (11.5-14.5); Red Blood Cell (RBC) Count 2.76 mill/uL (4.70-6.10)
[2021-06-11 05:59] LABS: ALT (SGPT) 27 U/L (8-55); AST (SGOT) 18 U/L (5-34); Albumin 2.9 g/dL (3.4-4.8); Alkaline Phosphatase 87 U/L (40-110); Anion Gap 13 mmol/L (10-20); BUN (Urea Nitrogen) 68 mg/dL (8.4-25.7); Bilirubin, Total 0.6 mg/dL (0.2-1.2); Calc. Creatinine Clearance 42 mL/min (70-130); Calcium 9.6 mg/dL (7.8-10.44); Carbon Dioxide 27 mmol/L (23-31); Chloride 112 mmol/L (98-107); Globulin 4.2 g/dL (2.4-3.5); Glucose 202 mg/dL (83-110); Magnesium 1.8 mg/dL (1.6-2.6); Protein, Total 7.1 g/dL (5.8-8.1); Sodium 148 mmol/L (136-145)
[2021-06-11] MEDS: Carvedilol 3.125 MG TAB PER TUBE SCH ×2 (09:25→17:00)
[2021-06-11] MEDS: Polyethylene Glycol 3350 17 GM Packet PER TUBE SCH (09:25)
[2021-06-11] MEDS: Senokot S 8.6-50 MG TAB PO SCH ×2 (09:25→21:53)
[2021-06-11] MEDS: Aspirin Chewable 81 MG TAB PER TUBE SCH (09:25)
[2021-06-11] MEDS: Dexamethasone 10 MG/ML VIAL SLOW IVP SCH (09:26)
[2021-06-11] MEDS: Apixaban 2.5 MG TAB PER TUBE SCH ×2 (09:26→21:53)
[2021-06-11] MEDS: Sodium Chloride 0.45% 1,000 ML IV SCH (09:26)
[2021-06-11] MEDS: Famotidine/PF 20 mg/2ml Vial SLOW IVP SCH (09:26)
[2021-06-11] MEDS: Dextrose 5% in Water 1,000 ML IV SCH (12:00)
[2021-06-12] MEDS: Dextrose 5% in Water 1,000 ML IV SCH ×2 (01:19→15:12)
[2021-06-12] MEDS: HumaLOG 300 UNITS/3 ML VIAL SC PRN (05:24)
[2021-06-12 07:28] LABS: #Lymphocytes 0.8 thou/uL (1.20-3.40); #Monocytes 0.2 thou/uL (0.11-0.59); #Neutrophils 12.9 thou/uL (1.40-6.50); %Eosinophils 0.2 % (0.0-10.0); %Lymphocytes 5.5 % (21.0-51.0); %Monocytes 1.6 % (0.0-10.0); %Neutrophils 92.6 % (42.0-75.0); Hemoglobin 9.8 g/dL (14.0-18.0); Mean Corpuscular HGB CONC 31.6 g/dL (32.0-36.0); Mean Corpuscular Volume 98.1 fL (78.0-98.0); Mean Platelet Volume 9.5 fL (7.4-10.4); Platelet Count 172 thou/uL (130-400); RBC Distribution Width 14.6 % (11.5-14.5); Red Blood Cell (RBC) Count 3.15 mill/uL (4.70-6.10); White Blood Cell (WBC) Count 13.9 thou/uL (4.8-10.8)
[2021-06-12 07:42] LABS: ALT (SGPT) 41 U/L (8-55); AST (SGOT) 26 U/L (5-34); Albumin 2.9 g/dL (3.4-4.8); Alkaline Phosphatase 97 U/L (40-110); Anion Gap 14 mmol/L (10-20); BUN (Urea Nitrogen) 65 mg/dL (8.4-25.7); Bilirubin, Total 0.6 mg/dL (0.2-1.2); Calc. Creatinine Clearance 40 mL/min (70-130); Calcium 9.9 mg/dL (7.8-10.44); Carbon Dioxide 24 mmol/L (23-31); Chloride 113 mmol/L (98-107); Globulin 4.3 g/dL (2.4-3.5); Glucose 290 mg/dL (83-110); Potassium 4.1 mmol/L (3.5-5.1); Protein, Total 7.2 g/dL (5.8-8.1); Sodium 147 mmol/L (136-145)
[2021-06-12] MEDS: Famotidine/PF 20 mg/2ml Vial SLOW IVP SCH (08:52)
[2021-06-12] MEDS: Dexamethasone 10 MG/ML VIAL SLOW IVP SCH (08:52)
[2021-06-12] MEDS: Aspirin Chewable 81 MG TAB PER TUBE SCH (08:52)
[2021-06-12] MEDS: Senokot S 8.6-50 MG TAB PO SCH ×2 (08:52→20:53)
[2021-06-12] MEDS: Carvedilol 3.125 MG TAB PER TUBE SCH ×2 (08:52→18:03)
[2021-06-12] MEDS: Apixaban 2.5 MG TAB PER TUBE SCH ×2 (08:52→20:52)
[2021-06-12] MEDS: Polyethylene Glycol 3350 17 GM Packet PER TUBE SCH (08:52)
[2021-06-13] MEDS: HumaLOG 300 UNITS/3 ML VIAL SC PRN ×2 (02:14→06:47)
[2021-06-13] MEDS: Polyethylene Glycol 3350 17 GM Packet PER TUBE SCH (09:51)
[2021-06-13] MEDS: Senokot S 8.6-50 MG TAB PO SCH ×2 (09:51→22:17)
[2021-06-13] MEDS: Dexamethasone 10 MG/ML VIAL SLOW IVP SCH (09:52)
[2021-06-13] MEDS: Aspirin Chewable 81 MG TAB PER TUBE SCH (09:52)
[2021-06-13] MEDS: Apixaban 2.5 MG TAB PER TUBE SCH ×2 (09:52→22:16)
[2021-06-13] MEDS: Famotidine/PF 20 mg/2ml Vial SLOW IVP SCH (09:52)
[2021-06-13] MEDS: Carvedilol 3.125 MG TAB PER TUBE SCH ×2 (09:52→17:51)
[2021-06-13] MEDS: Dextrose 5% in Water 1,000 ML IV SCH (09:54)
[2021-06-14] MEDS: HumaLOG 300 UNITS/3 ML VIAL SC PRN ×2 (00:36→06:33)
[2021-06-14] MEDS: Dextrose 5% in Water 1,000 ML IV SCH (00:36)
[2021-06-14 03:46] LABS: #Lymphocytes 0.7 thou/uL (1.20-3.40); #Monocytes 0.2 thou/uL (0.11-0.59); #Neutrophils 10.9 thou/uL (1.40-6.50); %Basophils 0.1 % (0.0-1.0); %Eosinophils 0.2 % (0.0-10.0); %Lymphocytes 5.6 % (21.0-51.0); %Monocytes 1.4 % (0.0-10.0); %Neutrophils 92.7 % (42.0-75.0); Mean Corpuscular HGB CONC 33.2 g/dL (32.0-36.0); Mean Corpuscular Hemoglobin 31.4 pg (27.0-31.0); Mean Corpuscular Volume 94.6 fL (78.0-98.0); Mean Platelet Volume 9.9 fL (7.4-10.4); Platelet Count 142 thou/uL (130-400); RBC Distribution Width 14.6 % (11.5-14.5); Red Blood Cell (RBC) Count 2.86 mill/uL (4.70-6.10); White Blood Cell (WBC) Count 11.8 thou/uL (4.8-10.8)
[2021-06-14 04:06] LABS: ALT (SGPT) 32 U/L (8-55); AST (SGOT) 17 U/L (5-34); Albumin 2.8 g/dL (3.4-4.8); Alkaline Phosphatase 100 U/L (40-110); Anion Gap 16 mmol/L (10-20); BUN (Urea Nitrogen) 65 mg/dL (8.4-25.7); Bilirubin, Total 0.6 mg/dL (0.2-1.2); Calc. Creatinine Clearance 38 mL/min (70-130); Calcium 9.1 mg/dL (7.8-10.44); Carbon Dioxide 24 mmol/L (23-31); Chloride 108 mmol/L (98-107); Globulin 4.1 g/dL (2.4-3.5); Glucose 272 mg/dL (83-110); Magnesium 1.5 mg/dL (1.6-2.6); Phosphorus 2.5 mg/dL (2.3-4.7); Protein, Total 6.9 g/dL (5.8-8.1); Sodium 144 mmol/L (136-145)
[2021-06-14] MEDS: Mometasone 200 MCG/Formoterol 5 MCG 120 PUFF INHALER INH SCH ×3 (07:06→19:23)
[2021-06-14] MEDS ORDERED: D5W-AA 4.25% with LYTES 1,000 ML BAG IV SCH (07:45)
[2021-06-14] MEDS: Apixaban 2.5 MG TAB PER TUBE SCH (09:08)
[2021-06-14] MEDS: Aspirin Chewable 81 MG TAB PER TUBE SCH (09:08)
[2021-06-14] MEDS: Pantoprazole 40 MG VIAL IVP SCH (09:08)
[2021-06-14] MEDS: Senokot S 8.6-50 MG TAB PO SCH (09:08)
[2021-06-14] MEDS: Carvedilol 3.125 MG TAB PER TUBE SCH ×2 (09:08→18:29)
[2021-06-14] MEDS: Dexamethasone 10 MG/ML VIAL SLOW IVP SCH (09:08)
[2021-06-14] MEDS: Polyethylene Glycol 3350 17 GM Packet PER TUBE SCH (09:09)
[2021-06-14] MEDS: NPH, Human Insulin Isophane 300 UNIT/3 ML VIAL SC SCH (09:14)
[2021-06-14] MEDS ORDERED: Magnesium Sulfate 4 GM in Sodium Chloride 0.9% 250 ML 250 ML IVPB SCH (09:15)
[2021-06-14] MEDS: D5W-AA 4.25% with LYTES 1,000 ML IV SCH (09:38)
[2021-06-15] MEDS: Apixaban 2.5 MG TAB PER TUBE SCH ×3 (00:09→23:09)
[2021-06-15] MEDS: HumaLOG 300 UNITS/3 ML VIAL SC PRN ×4 (00:09→17:45)
[2021-06-15] MEDS: Senokot S 8.6-50 MG TAB PO SCH ×3 (00:09→23:09)
[2021-06-15] MEDS: Cyanocobalamin (Vitamin B-12) 1,000 MCG TAB PER TUBE SCH ×2 (00:10→23:09)
[2021-06-15] MEDS: D5W-AA 4.25% with LYTES 1,000 ML IV SCH ×2 (02:19→14:58)
[2021-06-15] MEDS: Mometasone 200 MCG/Formoterol 5 MCG 120 PUFF INHALER INH SCH ×2 (07:17→19:03)
[2021-06-15] MEDS: Carvedilol 3.125 MG TAB PER TUBE SCH ×2 (10:26→17:44)
[2021-06-15] MEDS: Aspirin Chewable 81 MG TAB PER TUBE SCH (10:26)
[2021-06-15] MEDS: Dexamethasone 10 MG/ML VIAL SLOW IVP SCH (10:27)
[2021-06-15] MEDS: Pantoprazole 40 MG VIAL IVP SCH (10:28)
[2021-06-15] MEDS: NPH, Human Insulin Isophane 300 UNIT/3 ML VIAL SC SCH (10:32)
[2021-06-15] MEDS: Polyethylene Glycol 3350 17 GM Packet PER TUBE SCH (10:33)
[2021-06-15] MEDS ORDERED: NPH, Human Insulin Isophane 300 UNIT/3 ML VIAL SC SCH (21:00)
[2021-06-15] MEDS: Multivit, Therapeutic 1 TAB PER TUBE SCH (23:09)
[2021-06-15] MEDS: Folic Acid 1 MG TAB PER TUBE SCH (23:09)
[2021-06-16 03:28] LABS: #Eosinphils 0.1 thou/uL (0.0-0.7); #Lymphocytes 0.7 thou/uL (1.20-3.40); #Monocytes 0.1 thou/uL (0.11-0.59); %Basophils 0.2 % (0.0-1.0); %Eosinophils 1.1 % (0.0-10.0); %Lymphocytes 8.3 % (21.0-51.0); %Monocytes 1.2 % (0.0-10.0); %Neutrophils 89.3 % (42.0-75.0); Hemoglobin 9.1 g/dL (14.0-18.0); Mean Corpuscular HGB CONC 33.5 g/dL (32.0-36.0); Mean Corpuscular Hemoglobin 31.3 pg (27.0-31.0); Mean Corpuscular Volume 93.3 fL (78.0-98.0); Platelet Count 131 thou/uL (130-400); RBC Distribution Width 14.4 % (11.5-14.5); Red Blood Cell (RBC) Count 2.92 mill/uL (4.70-6.10); White Blood Cell (WBC) Count 8.9 thou/uL (4.8-10.8)
[2021-06-16 04:06] LABS: Anion Gap 15 mmol/L (10-20); BUN (Urea Nitrogen) 70 mg/dL (8.4-25.7); Calc. Creatinine Clearance 41 mL/min (70-130); Calcium 9.2 mg/dL (7.8-10.44); Carbon Dioxide 27 mmol/L (23-31); Chloride 107 mmol/L (98-107); Glucose 259 mg/dL (83-110); Magnesium 2.1 mg/dL (1.6-2.6); Phosphorus 3.4 mg/dL (2.3-4.7); Potassium 4.5 mmol/L (3.5-5.1); Sodium 144 mmol/L (136-145)
[2021-06-16] MEDS: D5W-AA 4.25% with LYTES 1,000 ML IV SCH ×2 (04:07→18:01)
[2021-06-16] MEDS: HumaLOG 300 UNITS/3 ML VIAL SC PRN ×3 (04:13→18:01)
[2021-06-16] MEDS: Mometasone 200 MCG/Formoterol 5 MCG 120 PUFF INHALER INH SCH ×2 (07:01→18:44)
[2021-06-16] MEDS ORDERED: NPH, Human Insulin Isophane 300 UNIT/3 ML VIAL SC SCH (09:00)
[2021-06-16 10:45] LABS: Actual Bicarbonate (HCO3a) 31.3 mEq/L (22-28); Base Excess (BEa) 5.3 mEq/L (-2.0 to +3.0); CO2 Tension 54.2 mmHg (35.0-45.0); Calcium, Ionized (arterial) 1.19 mmol/L (1.12-1.30); Carboxyhemoglobin (COHb) 0.1 gm% (0.0-3.0); Hemoglobin (Hb) 9.1 g/dL (14.0-18.0); Potassium - ABG Lab 3.93 mmol/L (3.70-5.30); pH, Arterial 7.38 (7.35-7.45)
[2021-06-16 10:49] LABS: Puncture Site RRA
[2021-06-16] MEDS: Carvedilol 3.125 MG TAB PER TUBE SCH ×2 (11:03→18:00)
[2021-06-16] MEDS: Senokot S 8.6-50 MG TAB PO SCH ×2 (11:03→21:14)
[2021-06-16] MEDS: Acetaminophen 325 MG TAB PER TUBE PRN (11:03)
[2021-06-16] MEDS: Aspirin Chewable 81 MG TAB PER TUBE SCH (11:03)
[2021-06-16] MEDS: Dexamethasone 4 mg/ml Vial SLOW IVP SCH (11:05)
[2021-06-16] MEDS: Pantoprazole 40 MG VIAL IVP SCH (11:05)
[2021-06-16] MEDS: Polyethylene Glycol 3350 17 GM Packet PER TUBE SCH (11:06)
[2021-06-16] MEDS: NPH, Human Insulin Isophane 300 UNIT/3 ML VIAL SC SCH ×2 (11:10→22:32)
[2021-06-16] MEDS: Folic Acid 1 MG TAB PER TUBE SCH (21:14)
[2021-06-16] MEDS: Multivit, Therapeutic 1 TAB PER TUBE SCH (21:14)
[2021-06-16] MEDS: Doxycycline 100 MG CAP PER TUBE SCH (21:14)
[2021-06-16] MEDS: Cyanocobalamin (Vitamin B-12) 1,000 MCG TAB PER TUBE SCH (21:14)
[2021-06-16] MEDS: Apixaban 2.5 MG TAB PER TUBE SCH (21:14)
[2021-06-17] MEDS: Mometasone 200 MCG/Formoterol 5 MCG 120 PUFF INHALER INH SCH ×2 (06:57→19:32)
[2021-06-17] MEDS: Aspirin Chewable 81 MG TAB PER TUBE SCH (08:03)
[2021-06-17] MEDS: Senokot S 8.6-50 MG TAB PO SCH ×2 (08:03→22:13)
[2021-06-17] MEDS: Polyethylene Glycol 3350 17 GM Packet PER TUBE SCH (08:03)
[2021-06-17] MEDS: Pantoprazole 40 MG VIAL IVP SCH (08:03)
[2021-06-17] MEDS: Dexamethasone 4 mg/ml Vial SLOW IVP SCH (08:03)
[2021-06-17] MEDS: Doxycycline 100 MG CAP PER TUBE SCH ×2 (08:03→22:12)
[2021-06-17] MEDS: NPH, Human Insulin Isophane 300 UNIT/3 ML VIAL SC SCH ×2 (08:04→22:13)
[2021-06-17] MEDS: Apixaban 2.5 MG TAB PER TUBE SCH ×2 (08:04→22:13)
[2021-06-17] MEDS: Carvedilol 3.125 MG TAB PER TUBE SCH ×2 (08:04→17:30)
[2021-06-17] MEDS: Multivit, Therapeutic 1 TAB PER TUBE SCH (22:13)
[2021-06-17] MEDS: Folic Acid 1 MG TAB PER TUBE SCH (22:13)
[2021-06-17] MEDS: Cyanocobalamin (Vitamin B-12) 1,000 MCG TAB PER TUBE SCH (22:13)
[2021-06-17] MEDS: D5W-AA 4.25% with LYTES 1,000 ML IV SCH (22:18)
[2021-06-18 03:42] LABS: #Eosinphils 0.5 thou/uL (0.0-0.7); #Lymphocytes 1.1 thou/uL (1.20-3.40); #Monocytes 0.2 thou/uL (0.11-0.59); #Neutrophils 6.4 thou/uL (1.40-6.50); %Basophils 0.2 % (0.0-1.0); %Eosinophils 6.1 % (0.0-10.0); %Lymphocytes 13.6 % (21.0-51.0); %Monocytes 2.9 % (0.0-10.0); %Neutrophils 77.1 % (42.0-75.0); Hemoglobin 10.1 g/dL (14.0-18.0); Mean Corpuscular HGB CONC 33.5 g/dL (32.0-36.0); Mean Corpuscular Hemoglobin 31.6 pg (27.0-31.0); Mean Corpuscular Volume 94.3 fL (78.0-98.0); Mean Platelet Volume 9.6 fL (7.4-10.4); Platelet Count 135 thou/uL (130-400); RBC Distribution Width 14.5 % (11.5-14.5); White Blood Cell (WBC) Count 8.2 thou/uL (4.8-10.8)
[2021-06-18 05:21] LABS: Anion Gap 15 mmol/L (10-20); BUN (Urea Nitrogen) 73 mg/dL (8.4-25.7); Calc. Creatinine Clearance 39 mL/min (70-130); Calcium 9.4 mg/dL (7.8-10.44); Carbon Dioxide 28 mmol/L (23-31); Chloride 110 mmol/L (98-107); Glucose 109 mg/dL (83-110); Magnesium 1.9 mg/dL (1.6-2.6); Phosphorus 4.1 mg/dL (2.3-4.7); Potassium 5.2 mmol/L (3.5-5.1); Sodium 148 mmol/L (136-145)
[2021-06-18] MEDS: Mometasone 200 MCG/Formoterol 5 MCG 120 PUFF INHALER INH SCH ×2 (07:56→19:50)
[2021-06-18] MEDS: Carvedilol 3.125 MG TAB PER TUBE SCH ×2 (09:18→21:47)
[2021-06-18] MEDS: Apixaban 2.5 MG TAB PER TUBE SCH (09:18)
[2021-06-18] MEDS: Senokot S 8.6-50 MG TAB PO SCH ×2 (09:19→21:48)
[2021-06-18] MEDS: Acetaminophen 325 MG TAB PER TUBE PRN (09:19)
[2021-06-18] MEDS: Doxycycline 100 MG CAP PER TUBE SCH ×2 (09:20→21:48)
[2021-06-18] MEDS: Polyethylene Glycol 3350 17 GM Packet PER TUBE SCH (09:20)
[2021-06-18] MEDS: Pantoprazole 40 MG VIAL IVP SCH (09:20)
[2021-06-18] MEDS: Dexamethasone 4 mg/ml Vial SLOW IVP SCH (09:20)
[2021-06-18] MEDS: Aspirin Chewable 81 MG TAB PER TUBE SCH (09:20)
[2021-06-18] MEDS: NPH, Human Insulin Isophane 300 UNIT/3 ML VIAL SC SCH (09:21)
[2021-06-18] MEDS ORDERED: NPH, Human Insulin Isophane 300 UNIT/3 ML VIAL SC SCH (21:00)
[2021-06-18] MEDS: Cyanocobalamin (Vitamin B-12) 1,000 MCG TAB PER TUBE SCH (21:47)
[2021-06-18] MEDS: Multivit, Therapeutic 1 TAB PER TUBE SCH (21:48)
[2021-06-18] MEDS: Folic Acid 1 MG TAB PER TUBE SCH (21:48)
[2021-06-18] MEDS: D5W-AA 4.25% with LYTES 1,000 ML IV SCH (22:01)
[2021-06-18] MEDS: Artificial Tear Sol 15 ML BOT EA EYE SCH (22:01)
[2021-06-19 04:07] LABS: #Eosinphils 0.3 thou/uL (0.0-0.7); #Lymphocytes 0.7 thou/uL (1.20-3.40); #Monocytes 0.3 thou/uL (0.11-0.59); #Neutrophils 5.1 thou/uL (1.40-6.50); %Basophils 0.3 % (0.0-1.0); %Eosinophils 4.7 % (0.0-10.0); %Lymphocytes 11.1 % (21.0-51.0); %Monocytes 4.6 % (0.0-10.0); %Neutrophils 79.3 % (42.0-75.0); Hemoglobin 9.6 g/dL (14.0-18.0); Mean Corpuscular HGB CONC 33.4 g/dL (32.0-36.0); Mean Corpuscular Hemoglobin 31.2 pg (27.0-31.0); Mean Corpuscular Volume 93.4 fL (78.0-98.0); Mean Platelet Volume 9.9 fL (7.4-10.4); Platelet Count 142 thou/uL (130-400); RBC Distribution Width 14.7 % (11.5-14.5); Red Blood Cell (RBC) Count 3.08 mill/uL (4.70-6.10); White Blood Cell (WBC) Count 6.5 thou/uL (4.8-10.8)
[2021-06-19 04:23] LABS: Anion Gap 16 mmol/L (10-20); BUN (Urea Nitrogen) 72 mg/dL (8.4-25.7); Calc. Creatinine Clearance 39 mL/min (70-130); Calcium 9.1 mg/dL (7.8-10.44); Carbon Dioxide 26 mmol/L (23-31); Chloride 113 mmol/L (98-107); Glucose 88 mg/dL (83-110); Magnesium 1.9 mg/dL (1.6-2.6); Potassium 4.5 mmol/L (3.5-5.1); Sodium 150 mmol/L (136-145)
[2021-06-19] MEDS ORDERED: Magnesium Sulfate 2 GM in Sodium Chloride 0.9% 100 ML IVPB SCH (07:15)
[2021-06-19] MEDS: Mometasone 200 MCG/Formoterol 5 MCG 120 PUFF INHALER INH SCH ×2 (07:27→19:28)
[2021-06-19] MEDS ORDERED: Magnesium 2 GM/50 ML 2 GM in Premix Bag 1 BAG IVPB SCH (08:00)
[2021-06-19] MEDS: Doxycycline 100 MG CAP PER TUBE SCH ×2 (08:40→20:48)
[2021-06-19] MEDS: Pantoprazole 40 MG VIAL IVP SCH (08:40)
[2021-06-19] MEDS: Senokot S 8.6-50 MG TAB PO SCH ×2 (08:40→20:48)
[2021-06-19] MEDS: Dexamethasone 4 mg/ml Vial SLOW IVP SCH (08:40)
[2021-06-19] MEDS: Aspirin Chewable 81 MG TAB PER TUBE SCH (08:40)
[2021-06-19] MEDS: Polyethylene Glycol 3350 17 GM Packet PER TUBE SCH (08:40)
[2021-06-19] MEDS: Carvedilol 3.125 MG TAB PER TUBE SCH ×2 (08:40→17:43)
[2021-06-19] MEDS: Artificial Tear Sol 15 ML BOT EA EYE SCH ×4 (11:06→20:47)
[2021-06-19] MEDS: Multivit, Therapeutic 1 TAB PER TUBE SCH (20:48)
[2021-06-19] MEDS: Folic Acid 1 MG TAB PER TUBE SCH (20:48)
[2021-06-19] MEDS: Cyanocobalamin (Vitamin B-12) 1,000 MCG TAB PER TUBE SCH (20:48)
[2021-06-19] MEDS: D5W-AA 4.25% with LYTES 1,000 ML IV SCH (22:36)
[2021-06-20] MEDS: Mometasone 200 MCG/Formoterol 5 MCG 120 PUFF INHALER INH SCH ×2 (07:48→20:58)
[2021-06-20] MEDS: Aspirin Chewable 81 MG TAB PER TUBE SCH (09:14)
[2021-06-20] MEDS: Artificial Tear Sol 15 ML BOT EA EYE SCH ×4 (09:14→21:58)
[2021-06-20] MEDS: Doxycycline 100 MG CAP PER TUBE SCH ×2 (09:14→21:53)
[2021-06-20] MEDS: Pantoprazole 40 MG VIAL IVP SCH (09:14)
[2021-06-20] MEDS: Carvedilol 3.125 MG TAB PER TUBE SCH ×2 (09:14→16:21)
[2021-06-20] MEDS: Polyethylene Glycol 3350 17 GM Packet PER TUBE SCH (09:15)
[2021-06-20] MEDS: Senokot S 8.6-50 MG TAB PO SCH ×2 (09:15→21:53)
[2021-06-20] MEDS: Dexamethasone 4 mg/ml Vial SLOW IVP SCH (09:16)
[2021-06-20] MEDS ORDERED: Sodium Chloride 0.9% 500 ML IV SCH (16:15)
[2021-06-20 16:58] LABS: Anion Gap 17 mmol/L (10-20); BUN (Urea Nitrogen) 77 mg/dL (8.4-25.7); Calc. Creatinine Clearance 34 mL/min (70-130); Calcium 9.6 mg/dL (7.8-10.44); Carbon Dioxide 24 mmol/L (23-31); Chloride 115 mmol/L (98-107); Glucose 224 mg/dL (83-110); Potassium 5.1 mmol/L (3.5-5.1); Sodium 151 mmol/L (136-145)
[2021-06-20] MEDS ORDERED: Ketamine 50 MG/ML (10ML VIAL) ONE (17:55)
[2021-06-20] MEDS ORDERED: PROPOFOL 20 ML ONE (17:55)
[2021-06-20] MEDS ORDERED: ceFAZolin 2 GM/DEX 5% 100 ML BAG ONE (18:00)
[2021-06-20] MEDS ORDERED: Phenylephrine 10 MG/ML VIAL ONE (18:17)
[2021-06-20] MEDS ORDERED: PROPOFOL 200 MG/20 ML VIAL ONE (18:17)
[2021-06-20] MEDS ORDERED: Promethazine HCl 25 MG/ML VIAL IVPB PRN (18:47)
[2021-06-20] MEDS ORDERED: Promethazine HCl 25 MG/ML VIAL IM PRN (18:47)
[2021-06-20] MEDS ORDERED: Ondansetron HCl/PF 4 MG/2 ML Vial IVP PRN (18:47)
[2021-06-20] MEDS ORDERED: Metoprolol Tartrate 5 MG/5 ML VIAL IVP SCH (21:30)
[2021-06-20] MEDS: Cyanocobalamin (Vitamin B-12) 1,000 MCG TAB PER TUBE SCH (21:53)
[2021-06-20] MEDS: Folic Acid 1 MG TAB PER TUBE SCH (21:53)
[2021-06-20] MEDS: Multivit, Therapeutic 1 TAB PER TUBE SCH (21:54)
[2021-06-20] MEDS: HumaLOG 300 UNITS/3 ML VIAL SC PRN (22:11)
[2021-06-21] MEDS: Diltiazem HCl 125 MG, Admixture Fee 1 EACH in Sodium Chloride 0.9% 100 ML IVPB SCH ×3 (02:58→23:57)
[2021-06-21 04:46] LABS: Anion Gap 16 mmol/L (10-20); BUN (Urea Nitrogen) 82 mg/dL (8.4-25.7); Calc. Creatinine Clearance 28 mL/min (70-130); Calcium 9.4 mg/dL (7.8-10.44); Carbon Dioxide 26 mmol/L (23-31); Chloride 116 mmol/L (98-107); Glucose 193 mg/dL (83-110); Magnesium 1.9 mg/dL (1.6-2.6); Potassium 4.9 mmol/L (3.5-5.1); Sodium 153 mmol/L (136-145)
[2021-06-21] MEDS: HumaLOG 300 UNITS/3 ML VIAL SC PRN ×4 (06:41→22:24)
[2021-06-21] MEDS: Mometasone 200 MCG/Formoterol 5 MCG 120 PUFF INHALER INH SCH ×2 (07:30→19:24)
[2021-06-21] MEDS: Pantoprazole 40 MG VIAL IVP SCH (08:15)
[2021-06-21] MEDS: Dexamethasone 4 mg/ml Vial SLOW IVP SCH (08:15)
[2021-06-21] MEDS: Carvedilol 3.125 MG TAB PER TUBE SCH ×2 (08:52→16:53)
[2021-06-21] MEDS: Artificial Tear Sol 15 ML BOT EA EYE SCH ×4 (08:53→20:22)
[2021-06-21] MEDS: Senokot S 8.6-50 MG TAB PO SCH ×2 (08:53→20:21)
[2021-06-21] MEDS: Polyethylene Glycol 3350 17 GM Packet PER TUBE SCH (08:53)
[2021-06-21] MEDS: Doxycycline 100 MG CAP PER TUBE SCH ×2 (08:53→20:21)
[2021-06-21] MEDS: Aspirin Chewable 81 MG TAB PER TUBE SCH (08:53)
[2021-06-21] MEDS ORDERED: D5W-AA 4.25% with LYTES 1,000 ML IV SCH (16:12)
[2021-06-21 16:50] LABS: Anion Gap 16 mmol/L (10-20); BUN (Urea Nitrogen) 90 mg/dL (8.4-25.7); Calc. Creatinine Clearance 24 mL/min (70-130); Calcium 8.9 mg/dL (7.8-10.44); Carbon Dioxide 24 mmol/L (23-31); Chloride 115 mmol/L (98-107); Glucose 274 mg/dL (83-110); Sodium 150 mmol/L (136-145)
[2021-06-21] MEDS: Multivit, Therapeutic 1 TAB PER TUBE SCH (20:22)
[2021-06-21] MEDS: Cyanocobalamin (Vitamin B-12) 1,000 MCG TAB PER TUBE SCH (20:22)
[2021-06-21] MEDS: Folic Acid 1 MG TAB PER TUBE SCH (20:22)
[2021-06-21 20:31] LABS: Anion Gap 15 mmol/L (10-20); BUN (Urea Nitrogen) 91 mg/dL (8.4-25.7); Calc. Creatinine Clearance 23 mL/min (70-130); Calcium 8.8 mg/dL (7.8-10.44); Carbon Dioxide 26 mmol/L (23-31); Chloride 114 mmol/L (98-107); Glucose 252 mg/dL (83-110); Potassium 4.9 mmol/L (3.5-5.1); Sodium 150 mmol/L (136-145)
[2021-06-22 00:19] LABS: Anion Gap 17 mmol/L (10-20); BUN (Urea Nitrogen) 92 mg/dL (8.4-25.7); Calc. Creatinine Clearance 23 mL/min (70-130); Calcium 8.8 mg/dL (7.8-10.44); Carbon Dioxide 25 mmol/L (23-31); Chloride 115 mmol/L (98-107); Glucose 201 mg/dL (83-110); Potassium 4.8 mmol/L (3.5-5.1); Sodium 152 mmol/L (136-145)
[2021-06-22 04:49] LABS: Anion Gap 15 mmol/L (10-20); BUN (Urea Nitrogen) 90 mg/dL (8.4-25.7); Calc. Creatinine Clearance 24 mL/min (70-130); Carbon Dioxide 25 mmol/L (23-31); Chloride 113 mmol/L (98-107); Glucose 161 mg/dL (83-110); Potassium 4.8 mmol/L (3.5-5.1); Sodium 148 mmol/L (136-145)
[2021-06-22] MEDS: HumaLOG 300 UNITS/3 ML VIAL SC PRN ×4 (05:36→22:16)
[2021-06-22] MEDS: Mometasone 200 MCG/Formoterol 5 MCG 120 PUFF INHALER INH SCH ×2 (07:34→19:17)
[2021-06-22] MEDS: Dexamethasone 4 mg/ml Vial SLOW IVP SCH (08:08)
[2021-06-22] MEDS: Carvedilol 3.125 MG TAB PER TUBE SCH ×2 (08:08→17:22)
[2021-06-22] MEDS: Polyethylene Glycol 3350 17 GM Packet PER TUBE SCH (08:08)
[2021-06-22] MEDS: Aspirin Chewable 81 MG TAB PER TUBE SCH (08:08)
[2021-06-22] MEDS: Senokot S 8.6-50 MG TAB PO SCH ×2 (08:08→20:22)
[2021-06-22] MEDS: Pantoprazole 40 MG VIAL IVP SCH (08:08)
[2021-06-22] MEDS: Doxycycline 100 MG CAP PER TUBE SCH ×2 (08:08→20:22)
[2021-06-22] MEDS: Artificial Tear Sol 15 ML BOT EA EYE SCH ×4 (08:09→20:23)
[2021-06-22] MEDS: Acetaminophen 325 MG TAB PER TUBE PRN (20:21)
[2021-06-22] MEDS: Multivit, Therapeutic 1 TAB PER TUBE SCH (20:22)
[2021-06-22] MEDS: Cyanocobalamin (Vitamin B-12) 1,000 MCG TAB PER TUBE SCH (20:22)
[2021-06-22] MEDS: Folic Acid 1 MG TAB PER TUBE SCH (20:22)
[2021-06-23 03:54] LABS: Anion Gap 16 mmol/L (10-20); BUN (Urea Nitrogen) 91 mg/dL (8.4-25.7); Calc. Creatinine Clearance 26 mL/min (70-130); Carbon Dioxide 25 mmol/L (23-31); Chloride 112 mmol/L (98-107); Glucose 129 mg/dL (83-110); Potassium 5.1 mmol/L (3.5-5.1); Sodium 148 mmol/L (136-145)
[2021-06-23] MEDS: Mometasone 200 MCG/Formoterol 5 MCG 120 PUFF INHALER INH SCH ×2 (08:00→19:31)
[2021-06-23] MEDS: Senokot S 8.6-50 MG TAB PO SCH ×2 (08:45→21:50)
[2021-06-23] MEDS: Doxycycline 100 MG CAP PER TUBE SCH (08:45)
[2021-06-23] MEDS: Aspirin Chewable 81 MG TAB PER TUBE SCH (08:45)
[2021-06-23] MEDS: Carvedilol 3.125 MG TAB PER TUBE SCH ×2 (08:45→16:57)
[2021-06-23] MEDS: Dexamethasone 4 mg/ml Vial SLOW IVP SCH (08:45)
[2021-06-23] MEDS: Polyethylene Glycol 3350 17 GM Packet PER TUBE SCH (08:45)
[2021-06-23] MEDS: Pantoprazole 40 MG VIAL IVP SCH (08:46)
[2021-06-23] MEDS: Artificial Tear Sol 15 ML BOT EA EYE SCH ×4 (08:46→21:51)
[2021-06-23] MEDS ORDERED: Bisacodyl 10 MG SUPP PR PRN (09:27)
[2021-06-23] MEDS: Metoclopramide 10 MG/10 ML UDCUP PO SCH ×2 (14:07→21:52)
[2021-06-23] MEDS: HumaLOG 300 UNITS/3 ML VIAL SC PRN ×2 (16:57→21:51)
[2021-06-23] MEDS ORDERED: levETIRAcetam in NS 1,500 MG in Premix Bag 1 BAG IVPB SCH (21:00)
[2021-06-23] MEDS: Apixaban 2.5 MG TAB PO SCH (21:50)
[2021-06-23] MEDS: Multivit, Therapeutic 1 TAB PER TUBE SCH (21:50)
[2021-06-23] MEDS: Cyanocobalamin (Vitamin B-12) 1,000 MCG TAB PER TUBE SCH (21:50)
[2021-06-23] MEDS: Folic Acid 1 MG TAB PER TUBE SCH (21:50)
[2021-06-23] MEDS: Ciprofloxacin 0.3 % Oint 3.5 GM TUBE EA EYE SCH (21:51)
[2021-06-24] MEDS: Metoclopramide 10 MG/10 ML UDCUP PO SCH ×2 (05:21→12:50)
[2021-06-24] MEDS: HumaLOG 300 UNITS/3 ML VIAL SC PRN ×3 (05:22→16:57)
[2021-06-24] MEDS: Mometasone 200 MCG/Formoterol 5 MCG 120 PUFF INHALER INH SCH ×2 (07:21→22:16)
[2021-06-24] MEDS ORDERED: Dexamethasone 4 MG TAB PO SCH (08:00)
[2021-06-24] MEDS: Senokot S 8.6-50 MG TAB PO SCH ×2 (09:06→21:28)
[2021-06-24] MEDS: Aspirin Chewable 81 MG TAB PER TUBE SCH (09:06)
[2021-06-24] MEDS: Apixaban 2.5 MG TAB PO SCH ×2 (09:06→21:29)
[2021-06-24] MEDS: Ciprofloxacin 0.3 % Oint 3.5 GM TUBE EA EYE SCH ×2 (09:06→21:37)
[2021-06-24] MEDS: Carvedilol 3.125 MG TAB PER TUBE SCH ×2 (09:06→17:04)
[2021-06-24] MEDS: Artificial Tear Sol 15 ML BOT EA EYE SCH ×4 (09:07→21:38)
[2021-06-24] MEDS: Polyethylene Glycol 3350 17 GM Packet PER TUBE SCH (09:07)
[2021-06-24 09:49] LABS: Albumin 2.7 g/dL (3.4-4.8); Anion Gap 17 mmol/L (10-20); BUN (Urea Nitrogen) 77 mg/dL (8.4-25.7); BUN/Creatinine Ratio 33.92; Calc. Creatinine Clearance 29 mL/min (70-130); Calcium 9.2 mg/dL (7.8-10.44); Carbon Dioxide 23 mmol/L (23-31); Chloride 110 mmol/L (98-107); Glucose 262 mg/dL (83-110); Phosphorus 2.4 mg/dL (2.3-4.7); Potassium 4.6 mmol/L (3.5-5.1); Sodium 145 mmol/L (136-145)
[2021-06-24] MEDS: Sodium Chloride 0.45% 1,000 ML IV SCH (10:30)
[2021-06-24] MEDS: Pantoprazole 40 MG GRANULES PACKET PO SCH (11:52)
[2021-06-24] MEDS ORDERED: Fluconazole 100 MG TAB PO SCH ×2 (18:30)
[2021-06-24] MEDS: Cyanocobalamin (Vitamin B-12) 1,000 MCG TAB PER TUBE SCH (21:28)
[2021-06-24] MEDS: Multivit, Therapeutic 1 TAB PER TUBE SCH (21:28)
[2021-06-24] MEDS: Folic Acid 1 MG TAB PER TUBE SCH (21:29)
[2021-06-25] MEDS: HumaLOG 300 UNITS/3 ML VIAL SC PRN ×5 (01:32→21:24)
[2021-06-25] MEDS: Sodium Chloride 0.45% 1,000 ML IV SCH ×4 (06:02→15:20)
[2021-06-25] MEDS: Mometasone 200 MCG/Formoterol 5 MCG 120 PUFF INHALER INH SCH ×2 (08:29→18:18)
[2021-06-25] MEDS: Senokot S 8.6-50 MG TAB PO SCH ×2 (08:59→21:22)
[2021-06-25] MEDS: Carvedilol 3.125 MG TAB PER TUBE SCH (08:59)
[2021-06-25] MEDS: Apixaban 2.5 MG TAB PO SCH ×2 (08:59→21:22)
[2021-06-25] MEDS: Aspirin Chewable 81 MG TAB PER TUBE SCH (08:59)
[2021-06-25] MEDS: Fluconazole 100 MG TAB PO SCH (09:00)
[2021-06-25] MEDS: Ciprofloxacin 0.3 % Oint 3.5 GM TUBE EA EYE SCH ×2 (09:01→21:23)
[2021-06-25] MEDS: Artificial Tear Sol 15 ML BOT EA EYE SCH ×4 (09:02→21:22)
[2021-06-25] MEDS: Polyethylene Glycol 3350 17 GM Packet PER TUBE SCH (09:03)
[2021-06-25] MEDS: Pantoprazole 40 MG GRANULES PACKET PO SCH (09:06)
[2021-06-25 11:10] LABS: #Lymphocytes 0.7 thou/uL (1.20-3.40); #Monocytes 0.5 thou/uL (0.11-0.59); #Neutrophils 6.3 thou/uL (1.40-6.50); %Basophils 0.1 % (0.0-1.0); %Eosinophils 0.6 % (0.0-10.0); %Monocytes 6.7 % (0.0-10.0); %Neutrophils 83.7 % (42.0-75.0); Hemoglobin 8.5 g/dL (14.0-18.0); Mean Corpuscular HGB CONC 31.4 g/dL (32.0-36.0); Mean Corpuscular Hemoglobin 29.8 pg (27.0-31.0); Mean Corpuscular Volume 94.8 fL (78.0-98.0); Mean Platelet Volume 10.3 fL (7.4-10.4); Platelet Count 193 thou/uL (130-400); RBC Distribution Width 14.8 % (11.5-14.5); Red Blood Cell (RBC) Count 2.85 mill/uL (4.70-6.10); White Blood Cell (WBC) Count 7.6 thou/uL (4.8-10.8)
[2021-06-25 11:22] LABS: Albumin 2.7 g/dL (3.4-4.8); Anion Gap 15 mmol/L (10-20); BUN (Urea Nitrogen) 65 mg/dL (8.4-25.7); BUN/Creatinine Ratio 32.83; Calc. Creatinine Clearance 36 mL/min (70-130); Calcium 8.6 mg/dL (7.8-10.44); Carbon Dioxide 27 mmol/L (23-31); Chloride 105 mmol/L (98-107); Glucose 288 mg/dL (83-110); Phosphorus 1.7 mg/dL (2.3-4.7); Potassium 4.1 mmol/L (3.5-5.1); Sodium 143 mmol/L (136-145)
[2021-06-25] MEDS ORDERED: Acetaminophen 325 MG TAB ONE (11:56)
[2021-06-25] MEDS: Carvedilol 6.25 MG TAB PO SCH (17:46)
[2021-06-25] MEDS: Multivit, Therapeutic 1 TAB PER TUBE SCH (21:22)
[2021-06-25] MEDS: Cyanocobalamin (Vitamin B-12) 1,000 MCG TAB PER TUBE SCH (21:22)
[2021-06-25] MEDS: Folic Acid 1 MG TAB PER TUBE SCH (21:22)
[2021-06-26] MEDS: Mometasone 200 MCG/Formoterol 5 MCG 120 PUFF INHALER INH SCH ×2 (07:05→19:05)
[2021-06-26 07:59] LABS: Albumin 2.7 g/dL (3.4-4.8); Anion Gap 14 mmol/L (10-20); BUN (Urea Nitrogen) 59 mg/dL (8.4-25.7); BUN/Creatinine Ratio 33.91; Calc. Creatinine Clearance 42 mL/min (70-130); Carbon Dioxide 29 mmol/L (23-31); Chloride 104 mmol/L (98-107); Glucose 195 mg/dL (83-110); Phosphorus 2.2 mg/dL (2.3-4.7); Potassium 4.1 mmol/L (3.5-5.1); Sodium 143 mmol/L (136-145)
[2021-06-26] MEDS: Fluconazole 100 MG TAB PO SCH (09:32)
[2021-06-26] MEDS: Aspirin Chewable 81 MG TAB PER TUBE SCH (09:32)
[2021-06-26] MEDS: Senokot S 8.6-50 MG TAB PO SCH ×2 (09:33→20:27)
[2021-06-26] MEDS: Carvedilol 6.25 MG TAB PO SCH ×2 (09:34→17:11)
[2021-06-26] MEDS: Apixaban 2.5 MG TAB PO SCH ×2 (09:34→20:26)
[2021-06-26] MEDS: Pantoprazole 40 MG GRANULES PACKET PO SCH (09:35)
[2021-06-26] MEDS: Polyethylene Glycol 3350 17 GM Packet PER TUBE SCH (09:36)
[2021-06-26] MEDS: Sodium Chloride 0.45% 1,000 ML IV SCH (11:00)
[2021-06-26] MEDS: HumaLOG 300 UNITS/3 ML VIAL SC PRN ×2 (12:32→17:12)
[2021-06-26] MEDS: Ciprofloxacin 0.3 % Oint 3.5 GM TUBE EA EYE SCH ×2 (12:37→20:27)
[2021-06-26] MEDS: Artificial Tear Sol 15 ML BOT EA EYE SCH ×4 (12:38→20:26)
[2021-06-26] MEDS: Cyanocobalamin (Vitamin B-12) 1,000 MCG TAB PER TUBE SCH (20:27)
[2021-06-26] MEDS: Folic Acid 1 MG TAB PER TUBE SCH (20:27)
[2021-06-26] MEDS: Multivit, Therapeutic 1 TAB PER TUBE SCH (20:28)
[2021-06-27] MEDS: HumaLOG 300 UNITS/3 ML VIAL SC PRN ×4 (00:09→17:16)
[2021-06-27] MEDS: Sodium Chloride 0.45% 1,000 ML IV SCH (06:03)
[2021-06-27] MEDS: Mometasone 200 MCG/Formoterol 5 MCG 120 PUFF INHALER INH SCH ×2 (07:47→18:56)
[2021-06-27 08:02] LABS: Albumin 2.6 g/dL (3.4-4.8); Anion Gap 14 mmol/L (10-20); BUN (Urea Nitrogen) 53 mg/dL (8.4-25.7); BUN/Creatinine Ratio 30.46; Calc. Creatinine Clearance 42 mL/min (70-130); Carbon Dioxide 29 mmol/L (23-31); Chloride 101 mmol/L (98-107); Glucose 245 mg/dL (83-110); Phosphorus 2.1 mg/dL (2.3-4.7); Potassium 3.7 mmol/L (3.5-5.1); Sodium 140 mmol/L (136-145)
[2021-06-27] MEDS: Carvedilol 6.25 MG TAB PO SCH ×2 (08:16→17:16)
[2021-06-27] MEDS: Aspirin Chewable 81 MG TAB PER TUBE SCH (08:16)
[2021-06-27] MEDS: Senokot S 8.6-50 MG TAB PO SCH ×2 (08:16→19:55)
[2021-06-27] MEDS: Apixaban 2.5 MG TAB PO SCH ×2 (08:16→19:55)
[2021-06-27] MEDS: Pantoprazole 40 MG GRANULES PACKET PO SCH (08:17)
[2021-06-27] MEDS: Artificial Tear Sol 15 ML BOT EA EYE SCH ×4 (08:17→19:57)
[2021-06-27] MEDS: Polyethylene Glycol 3350 17 GM Packet PER TUBE SCH (08:17)
[2021-06-27] MEDS: Ciprofloxacin 0.3 % Oint 3.5 GM TUBE EA EYE SCH ×2 (08:17→19:55)
[2021-06-27] MEDS: Lantus 1000 UNITS/10 ML VIAL SC SCH (09:00)
[2021-06-27] MEDS: Folic Acid 1 MG TAB PER TUBE SCH (19:54)
[2021-06-27] MEDS: Multivit, Therapeutic 1 TAB PER TUBE SCH (19:54)
[2021-06-27] MEDS: Cyanocobalamin (Vitamin B-12) 1,000 MCG TAB PER TUBE SCH (19:55)
[2021-06-28] MEDS: Sodium Chloride 0.45% 1,000 ML IV SCH (01:57)
[2021-06-28] MEDS: HumaLOG 300 UNITS/3 ML VIAL SC PRN (05:31)
[2021-06-28] MEDS: Mometasone 200 MCG/Formoterol 5 MCG 120 PUFF INHALER INH SCH (08:14)
[2021-06-28] MEDS: Ciprofloxacin 0.3 % Oint 3.5 GM TUBE EA EYE SCH ×2 (09:16→21:07)
[2021-06-28] MEDS: Carvedilol 6.25 MG TAB PO SCH ×2 (09:16→16:05)
[2021-06-28] MEDS: Pantoprazole 40 MG GRANULES PACKET PO SCH (09:16)
[2021-06-28] MEDS: Apixaban 2.5 MG TAB PO SCH ×2 (09:16→21:03)
[2021-06-28] MEDS: Aspirin Chewable 81 MG TAB PER TUBE SCH (09:16)
[2021-06-28] MEDS: Artificial Tear Sol 15 ML BOT EA EYE SCH ×4 (09:16→21:07)
[2021-06-28] MEDS: Senokot S 8.6-50 MG TAB PO SCH ×2 (09:17→21:04)
[2021-06-28] MEDS: Lantus 1000 UNITS/10 ML VIAL SC SCH (09:17)
[2021-06-28] MEDS: Polyethylene Glycol 3350 17 GM Packet PER TUBE SCH (09:17)
[2021-06-28 10:52] LABS: Albumin 2.5 g/dL (3.4-4.8); Anion Gap 14 mmol/L (10-20); BUN (Urea Nitrogen) 48 mg/dL (8.4-25.7); Calc. Creatinine Clearance 46 mL/min (70-130); Calcium 8.9 mg/dL (7.8-10.44); Carbon Dioxide 29 mmol/L (23-31); Chloride 101 mmol/L (98-107); Glucose 182 mg/dL (83-110); Phosphorus 2.8 mg/dL (2.3-4.7); Potassium 3.7 mmol/L (3.5-5.1); Sodium 140 mmol/L (136-145)
[2021-06-28] MEDS: Cyanocobalamin (Vitamin B-12) 1,000 MCG TAB PER TUBE SCH (21:03)
[2021-06-28] MEDS: Folic Acid 1 MG TAB PER TUBE SCH (21:04)
[2021-06-28] MEDS: Multivit, Therapeutic 1 TAB PER TUBE SCH (21:04)
[2021-06-29] MEDS: Mometasone 200 MCG/Formoterol 5 MCG 120 PUFF INHALER INH SCH ×2 (00:27→08:38)
[2021-06-29] MEDS: Sodium Chloride 0.45% 1,000 ML IV SCH ×2 (00:34→12:55)
[2021-06-29] MEDS: Aspirin Chewable 81 MG TAB PER TUBE SCH (10:12)
[2021-06-29] MEDS: Senokot S 8.6-50 MG TAB PO SCH ×2 (10:12→23:55)
[2021-06-29] MEDS: Apixaban 2.5 MG TAB PO SCH ×2 (10:12→10:13)
[2021-06-29] MEDS: Carvedilol 6.25 MG TAB PO SCH ×2 (10:13→17:27)
[2021-06-29] MEDS: Artificial Tear Sol 15 ML BOT EA EYE SCH ×4 (10:14→22:54)
[2021-06-29] MEDS: Ciprofloxacin 0.3 % Oint 3.5 GM TUBE EA EYE SCH ×2 (10:14→22:54)
[2021-06-29] MEDS: Lantus 1000 UNITS/10 ML VIAL SC SCH (10:15)
[2021-06-29] MEDS: Lansoprazole 3 MG/ML ORAL SUSPENSION PO SCH (10:16)
[2021-06-29] MEDS: Polyethylene Glycol 3350 17 GM Packet PER TUBE SCH (10:16)
[2021-06-29] MEDS: HumaLOG 300 UNITS/3 ML VIAL SC PRN ×3 (12:56→23:32)
[2021-06-29] MEDS ORDERED: Metoclopramide HCl 10 MG/2 ML VIAL IVP SCH (15:45)
[2021-06-29] MEDS: Cyanocobalamin (Vitamin B-12) 1,000 MCG TAB PER TUBE SCH (22:53)
[2021-06-29] MEDS: Metoclopramide HCl 10 MG/2 ML VIAL IVP SCH (22:53)
[2021-06-29] MEDS: Folic Acid 1 MG TAB PER TUBE SCH (22:53)
[2021-06-29] MEDS: Multivit, Therapeutic 1 TAB PER TUBE SCH (22:53)
[2021-06-30] MEDS: Metoclopramide HCl 10 MG/2 ML VIAL IVP SCH ×3 (05:44→20:19)
[2021-06-30] MEDS: HumaLOG 300 UNITS/3 ML VIAL SC PRN ×3 (05:44→17:51)
[2021-06-30] MEDS: Ciprofloxacin 0.3 % Oint 3.5 GM TUBE EA EYE SCH ×2 (09:41→20:20)
[2021-06-30] MEDS: Artificial Tear Sol 15 ML BOT EA EYE SCH ×4 (09:41→20:20)
[2021-06-30] MEDS: Aspirin Chewable 81 MG TAB PER TUBE SCH (09:44)
[2021-06-30] MEDS: Apixaban 2.5 MG TAB PO SCH ×2 (09:44→20:19)
[2021-06-30] MEDS: Carvedilol 6.25 MG TAB PO SCH ×2 (09:44→17:48)
[2021-06-30] MEDS: Lansoprazole 3 MG/ML ORAL SUSPENSION PO SCH (09:46)
[2021-06-30] MEDS: Senokot S 8.6-50 MG TAB PO SCH ×2 (09:47→20:19)
[2021-06-30] MEDS: Polyethylene Glycol 3350 17 GM Packet PER TUBE SCH (09:47)
[2021-06-30] MEDS: Lantus 1000 UNITS/10 ML VIAL SC SCH (10:08)
[2021-06-30] MEDS: Sodium Chloride 0.45% 1,000 ML IV SCH (14:26)
[2021-06-30] MEDS: Multivit, Therapeutic 1 TAB PER TUBE SCH (20:19)
[2021-06-30] MEDS: Folic Acid 1 MG TAB PER TUBE SCH (20:19)
[2021-06-30] MEDS: Cyanocobalamin (Vitamin B-12) 1,000 MCG TAB PER TUBE SCH (20:19)
[2021-07-01] MEDS: Metoclopramide HCl 10 MG/2 ML VIAL IVP SCH ×3 (05:14→22:21)
[2021-07-01] MEDS: HumaLOG 300 UNITS/3 ML VIAL SC PRN ×4 (05:15→20:01)
[2021-07-01] MEDS: Ciprofloxacin 0.3 % Oint 3.5 GM TUBE EA EYE SCH ×2 (10:12→19:35)
[2021-07-01] MEDS: Aspirin Chewable 81 MG TAB PER TUBE SCH (10:12)
[2021-07-01] MEDS: Carvedilol 6.25 MG TAB PO SCH ×2 (10:13→17:54)
[2021-07-01] MEDS: Artificial Tear Sol 15 ML BOT EA EYE SCH ×4 (10:14→19:36)
[2021-07-01] MEDS: Apixaban 2.5 MG TAB PO SCH ×2 (10:15→19:35)
[2021-07-01] MEDS: Polyethylene Glycol 3350 17 GM Packet PER TUBE SCH (10:15)
[2021-07-01] MEDS: Lantus 1000 UNITS/10 ML VIAL SC SCH (10:15)
[2021-07-01] MEDS: Senokot S 8.6-50 MG TAB PO SCH ×2 (10:16→19:36)
[2021-07-01] MEDS: Lansoprazole 3 MG/ML ORAL SUSPENSION PO SCH (10:47)
[2021-07-01] MEDS: Sodium Chloride 0.45% 1,000 ML IV SCH (10:49)
[2021-07-01 11:24] VITALS: BMI 30.4
[2021-07-01] MEDS: Multivit, Therapeutic 1 TAB PER TUBE SCH (19:35)
[2021-07-01] MEDS: Cyanocobalamin (Vitamin B-12) 1,000 MCG TAB PER TUBE SCH (19:35)
[2021-07-01] MEDS: Folic Acid 1 MG TAB PER TUBE SCH (19:35)
[2021-07-02] MEDS: Metoclopramide HCl 10 MG/2 ML VIAL IVP SCH ×3 (05:52→22:00)
[2021-07-02] MEDS: Sodium Chloride 0.45% 1,000 ML IV SCH (05:53)
[2021-07-02] MEDS: Aspirin Chewable 81 MG TAB PER TUBE SCH (09:35)
[2021-07-02] MEDS: Carvedilol 6.25 MG TAB PO SCH ×2 (09:36→17:25)
[2021-07-02] MEDS: Apixaban 2.5 MG TAB PO SCH ×2 (09:38→20:28)
[2021-07-02] MEDS: Ciprofloxacin 0.3 % Oint 3.5 GM TUBE EA EYE SCH ×2 (09:38→20:29)
[2021-07-02] MEDS: Lansoprazole 3 MG/ML ORAL SUSPENSION PO SCH (09:38)
[2021-07-02] MEDS: Artificial Tear Sol 15 ML BOT EA EYE SCH ×4 (09:38→20:28)
[2021-07-02] MEDS: Lantus 1000 UNITS/10 ML VIAL SC SCH (09:39)
[2021-07-02] MEDS: Polyethylene Glycol 3350 17 GM Packet PER TUBE SCH (09:40)
[2021-07-02] MEDS: Senokot S 8.6-50 MG TAB PO SCH ×2 (09:40→20:29)
[2021-07-02] MEDS: HumaLOG 300 UNITS/3 ML VIAL SC PRN ×3 (13:16→20:31)
[2021-07-02] MEDS: Folic Acid 1 MG TAB PER TUBE SCH (20:28)
[2021-07-02] MEDS: Multivit, Therapeutic 1 TAB PER TUBE SCH (20:28)
[2021-07-02] MEDS: Cyanocobalamin (Vitamin B-12) 1,000 MCG TAB PER TUBE SCH (20:28)
[2021-07-03] MEDS: Metoclopramide HCl 10 MG/2 ML VIAL IVP SCH ×2 (05:26→14:14)
[2021-07-03] MEDS: Sodium Chloride 0.45% 1,000 ML IV SCH (05:26)
[2021-07-03] MEDS: Carvedilol 6.25 MG TAB PO SCH (10:19)
[2021-07-03] MEDS: Apixaban 2.5 MG TAB PO SCH (10:20)
[2021-07-03] MEDS: Aspirin Chewable 81 MG TAB PER TUBE SCH (10:20)
[2021-07-03] MEDS: Ciprofloxacin 0.3 % Oint 3.5 GM TUBE EA EYE SCH (10:20)
[2021-07-03] MEDS: Artificial Tear Sol 15 ML BOT EA EYE SCH ×2 (10:21→13:03)
[2021-07-03] MEDS: Lantus 1000 UNITS/10 ML VIAL SC SCH (10:22)
[2021-07-03] MEDS: Lansoprazole 3 MG/ML ORAL SUSPENSION PO SCH (10:26)
[2021-07-03] MEDS: Polyethylene Glycol 3350 17 GM Packet PER TUBE SCH (10:26)
[2021-07-03] MEDS: Senokot S 8.6-50 MG TAB PO SCH (10:26)
[2021-07-03] MEDS: HumaLOG 300 UNITS/3 ML VIAL SC PRN (13:01)
[2021-07-03 14:49] VITALS: BP 180/61; TEMP 97.3
== END 2021-07-03 14:56 | DRG 207 ==
LOC: ERS 23:32 → EDBD 23:32 → CCU 05-25 02:43 → IMCU/EMU 06-08 13:12 → T4-A 06-24 18:52
PROVIDERS: ADMIT Internal Medicine; ATTEND Hospitalist
PROC: 5A1955Z Respiratory Ventilation, Greater than 96 Consecutive Hours (ICD-10-PCS; principal; 2021-05-25)
PROC: 3E033XZ Introduction of Vasopressor into Peripheral Vein, Percutaneous Approach (ICD-10-PCS; 2021-05-25)
PROC: 8E0ZXY6 Isolation (ICD-10-PCS; 2021-05-25)
PROC: 0D9670Z Drainage of Stomach with Drainage Device, Via Natural or Artificial Opening (ICD-10-PCS; 2021-05-25)
PROC: 3E0G76Z Introduction of Nutritional Substance into Upper GI, Via Natural or Artificial Opening (ICD-10-PCS; 2021-05-25)
PROC: 5A0955A Assistance with Respiratory Ventilation, Greater than 96 Consecutive Hours, High Flow/Velocity Cannula (ICD-10-PCS; 2021-06-07)
PROC: 5A09357 Assistance with Respiratory Ventilation, Less than 24 Consecutive Hours, Continuous Positive Airway Pressure (ICD-10-PCS; 2021-06-17)
PROC: 0DH63UZ Insertion of Feeding Device into Stomach, Percutaneous Approach (ICD-10-PCS; 2021-06-20)
DX: U07.1 COVID-19 (principal); J12.82 Pneumonia due to coronavirus disease 2019; J80 Acute respiratory distress syndrome; G93.41 Metabolic encephalopathy; I46.8 Cardiac arrest due to other underlying condition; J15.9 Unspecified bacterial pneumonia; N39.0 Urinary tract infection, site not specified; N18.4 Chronic kidney disease, stage 4 (severe); F02.81 Dementia in other diseases classified elsewhere, unspecified severity, with behavioral disturbance; I13.0 Hypertensive heart and chronic kidney disease with heart failure and stage 1 through stage 4 chronic kidney disease, or unspecified chronic kidney disease; F05 Delirium due to known physiological condition; J44.0 Chronic obstructive pulmonary disease with (acute) lower respiratory infection; I48.3 Typical atrial flutter; I24.8 Other forms of acute ischemic heart disease; E87.2 Acidosis; I48.11 Longstanding persistent atrial fibrillation; E44.0 Moderate protein-calorie malnutrition; E87.0 Hyperosmolality and hypernatremia; G72.81 Critical illness myopathy; G93.1 Anoxic brain damage, not elsewhere classified; I47.1 Supraventricular tachycardia; N17.9 Acute kidney failure, unspecified; Z66 Do not resuscitate; R13.12 Dysphagia, oropharyngeal phase; B96.5 Pseudomonas (aeruginosa) (mallei) (pseudomallei) as the cause of diseases classified elsewhere; G30.1 Alzheimer's disease with late onset; E11.22 Type 2 diabetes mellitus with diabetic chronic kidney disease; E11.65 Type 2 diabetes mellitus with hyperglycemia; R79.89 Other specified abnormal findings of blood chemistry; M10.9 Gout, unspecified; D69.6 Thrombocytopenia, unspecified; E78.5 Hyperlipidemia, unspecified; I08.3 Combined rheumatic disorders of mitral, aortic and tricuspid valves; R31.9 Hematuria, unspecified; D63.1 Anemia in chronic kidney disease; E66.9 Obesity, unspecified; K29.60 Other gastritis without bleeding; E86.0 Dehydration; E83.42 Hypomagnesemia; E87.5 Hyperkalemia; Z78.1 Physical restraint status; Z28.21 Immunization not carried out because of patient refusal; Z79.01 Long term (current) use of anticoagulants; Z68.30 Body mass index [BMI] 30.0-30.9, adult; Z79.82 Long term (current) use of aspirin; Z79.899 Other long term (current) drug therapy; I50.9 Heart failure, unspecified
CPT/HCPCS: 0240U; 36415; 36416; 36600; 51702; 70450; 71045; 72170; 74018; 80048; 80053; 80069; 80306; 81003; 81015; 82550; 82553; 82607; 82746; 82805; 83036; 83605; 83690; 83735; 83880; 84100; 84145; 84443; 84478; 84484; 85025; 85379; 85610; 85730; 86140; 86480; 86850; 86900; 86901; 87040; 87077; 87081; 87086; 87186; 87449; 87899; 93005; 93010; 93306; 94002; 94003; 94640; 94660; 95816; 95819; 95957; 96374; 96375; C9113; J0692; J0696; J1100; J1650; J1815; J2060; J2370; J2704; J2765; J3010; J3475; J3490; J7030; J7050; J7070; J7620; J8540; P9047; S0028

== ENCOUNTER 2021-07-04 10:09 | Inpatient (IN) | payer MEDICARE, MEDICAID ==
[2021-07-04 11:43] LABS: #Eosinphils 0.2 thou/uL (0.0-0.7); #Lymphocytes 1.2 thou/uL (1.20-3.40); #Monocytes 0.5 thou/uL (0.11-0.59); #Neutrophils 6.2 thou/uL (1.40-6.50); %Basophils 0.2 % (0.0-1.0); %Eosinophils 2.2 % (0.0-10.0); %Lymphocytes 15.2 % (21.0-51.0); %Monocytes 6.1 % (0.0-10.0); %Neutrophils 76.3 % (42.0-75.0); Hemoglobin 7.8 g/dL (14.0-18.0); Mean Corpuscular HGB CONC 31.8 g/dL (32.0-36.0); Mean Corpuscular Hemoglobin 29.9 pg (27.0-31.0); Mean Corpuscular Volume 93.9 fL (78.0-98.0); Mean Platelet Volume 9.1 fL (7.4-10.4); Platelet Count 203 thou/uL (130-400); RBC Distribution Width 15.1 % (11.5-14.5); Red Blood Cell (RBC) Count 2.59 mill/uL (4.70-6.10); White Blood Cell (WBC) Count 8.2 thou/uL (4.8-10.8)
[2021-07-04 12:07] LABS: ALT (SGPT) 15 U/L (8-55); AST (SGOT) 20 U/L (5-34); Albumin 2.7 g/dL (3.4-4.8); Alkaline Phosphatase 100 U/L (40-110); Anion Gap 14 mmol/L (10-20); BUN (Urea Nitrogen) 37 mg/dL (8.4-25.7); Bilirubin, Total 0.3 mg/dL (0.2-1.2); Calc. Creatinine Clearance 0 mL/min (70-130); Calcium 9.4 mg/dL (7.8-10.44); Carbon Dioxide 32 mmol/L (23-31); Chloride 99 mmol/L (98-107); Globulin 3.5 g/dL (2.4-3.5); Glucose 191 mg/dL (83-110); Potassium 3.3 mmol/L (3.5-5.1); Protein, Total 6.2 g/dL (5.8-8.1); Sodium 142 mmol/L (136-145)
[2021-07-04 12:09] LABS: Bilirubin Negative (Negative); Blood, Urine Small (Negative); Glucose, Urine (Dipstick) Negative (Negative); Ketone, Urine Negative (Negative); Leukocyte Large (Negative); Nitrite Positive (Negative); Protein, Urine (Dipstick) 30 mg/dL (Neg-Trace); Urobilinogen 0.2 mg/dL (Less than 2)
[2021-07-04 12:14] LABS: Clarity Cloudy (Clear)
[2021-07-04 12:29] LABS: CKMB 1.6 ng/mL (0-6.6)
[2021-07-04 12:56] LABS: WBC/HPF Greater than 50 HPF (0-3)
[2021-07-04 12:57] LABS: RBC/HPF 0-3 HPF (0-3); Yeast-Budding 1+ HPF (None Seen)
[2021-07-04 12:58] LABS: Bacteria/HPF Rare-Few HPF (None Seen)
[2021-07-04] MEDS ORDERED: cefTRIAXone\\ROCEPHIN 1 GM VIAL ONE (15:04)
[2021-07-04] MEDS ORDERED: Electrolyte Replacement Protocol FS PRN (16:00)
[2021-07-04] MEDS ORDERED: Potassium Chloride 20 MEQ TAB PO SCH (16:00)
[2021-07-04] MEDS ORDERED: Electrolyte Replacement Protocol 1 EACH FS SCH (16:00)
[2021-07-04 16:18] LABS: CKMB 1.4 ng/mL (0-6.6)
[2021-07-04] MEDS ORDERED: Dextrose 50% Abboject 50 ML SYRINGE SLOW IVP PRN (16:19)
[2021-07-04] MEDS ORDERED: Dextrose 5% in Water 1,000 ML IV PRN (16:19)
[2021-07-04] MEDS ORDERED: HumaLOG 300 UNITS/3 ML VIAL SC PRN ×2 (16:19)
[2021-07-04] MEDS ORDERED: Potassium Chloride 20 MEQ TAB PER TUBE SCH (16:20)
[2021-07-04] MEDS: cefTRIAXone\\ROCEPHIN 1 GM in Sodium Chloride 0.9% 100 ML IVPB SCH (17:58)
[2021-07-04] MEDS ORDERED: Furosemide 40 MG/4 ML VIAL SLOW IVP SCH (21:45)
[2021-07-04 22:15] LABS: Magnesium 1.7 mg/dL (1.6-2.6); Phosphorus 2.5 mg/dL (2.3-4.7)
[2021-07-04 22:21] LABS: CKMB 1.7 ng/mL (0-6.6); Troponin I 0.044 ng/mL (< 0.028)
[2021-07-04] MEDS ORDERED: Magnesium 2 GM/50 ML 2 GM in Premix Bag 1 BAG IVPB SCH (23:30)
[2021-07-05 05:25] LABS: #Basophils 0.1 thou/uL (0.0-0.2); #Eosinphils 0.3 thou/uL (0.0-0.7); #Lymphocytes 1.2 thou/uL (1.20-3.40); #Monocytes 0.6 thou/uL (0.11-0.59); %Basophils 0.7 % (0.0-1.0); %Eosinophils 3.4 % (0.0-10.0); %Lymphocytes 15.1 % (21.0-51.0); %Neutrophils 73.7 % (42.0-75.0); Hemoglobin 8.4 g/dL (14.0-18.0); Mean Corpuscular HGB CONC 31.8 g/dL (32.0-36.0); Mean Corpuscular Hemoglobin 29.9 pg (27.0-31.0); Mean Corpuscular Volume 94.1 fL (78.0-98.0); Mean Platelet Volume 9.3 fL (7.4-10.4); Platelet Count 213 thou/uL (130-400); RBC Distribution Width 15.4 % (11.5-14.5); Red Blood Cell (RBC) Count 2.82 mill/uL (4.70-6.10); White Blood Cell (WBC) Count 8.2 thou/uL (4.8-10.8)
[2021-07-05 05:47] LABS: Anion Gap 16 mmol/L (10-20); BUN (Urea Nitrogen) 36 mg/dL (8.4-25.7); Calc. Creatinine Clearance 39 mL/min (70-130); Calcium 9.9 mg/dL (7.8-10.44); Carbon Dioxide 32 mmol/L (23-31); Chloride 98 mmol/L (98-107); Glucose 160 mg/dL (83-110); Potassium 3.3 mmol/L (3.5-5.1); Sodium 143 mmol/L (136-145)
[2021-07-05] MEDS ORDERED: Potassium Bicarbonate/Cit Ac 20 MEQ TAB PER TUBE SCH (07:00)
[2021-07-05] MEDS: cefTRIAXone\\ROCEPHIN 1 GM in Sodium Chloride 0.9% 100 ML IVPB SCH (14:33)
[2021-07-05] MEDS ORDERED: hydrALAZINE 20 MG/ML VIAL SLOW IVP PRN (15:12)
[2021-07-06 05:44] LABS: #Eosinphils 0.2 thou/uL (0.0-0.7); #Lymphocytes 1.2 thou/uL (1.20-3.40); #Monocytes 0.6 thou/uL (0.11-0.59); #Neutrophils 5.1 thou/uL (1.40-6.50); %Basophils 0.1 % (0.0-1.0); %Eosinophils 2.7 % (0.0-10.0); %Lymphocytes 17.3 % (21.0-51.0); %Monocytes 8.5 % (0.0-10.0); %Neutrophils 71.4 % (42.0-75.0); Hemoglobin 8.3 g/dL (14.0-18.0); Mean Corpuscular HGB CONC 32.2 g/dL (32.0-36.0); Mean Corpuscular Hemoglobin 30.6 pg (27.0-31.0); Mean Corpuscular Volume 95.1 fL (78.0-98.0); Platelet Count 201 thou/uL (130-400); RBC Distribution Width 15.3 % (11.5-14.5); White Blood Cell (WBC) Count 7.1 thou/uL (4.8-10.8)
[2021-07-06 06:12] LABS: Anion Gap 13 mmol/L (10-20); BUN (Urea Nitrogen) 36 mg/dL (8.4-25.7); Calc. Creatinine Clearance 39 mL/min (70-130); Calcium 9.1 mg/dL (7.8-10.44); Carbon Dioxide 37 mmol/L (23-31); Chloride 99 mmol/L (98-107); Glucose 122 mg/dL (83-110); Magnesium 1.9 mg/dL (1.6-2.6); Potassium 3.2 mmol/L (3.5-5.1); Sodium 146 mmol/L (136-145)
[2021-07-06] MEDS ORDERED: Potassium Bicarbonate/Cit Ac 20 MEQ TAB PER TUBE SCH (07:00)
[2021-07-06] MEDS ORDERED: Magnesium 2 GM/50 ML 2 GM in Premix Bag 1 BAG IVPB SCH (07:00)
[2021-07-06 10:10] VITALS: BMI 27.1
[2021-07-06] MEDS: Cefepime 1 GM in Sodium Chloride 0.9% 100 ML IVPB SCH (10:43)
[2021-07-06] MEDS: Metoclopramide HCl 10 MG/2 ML VIAL IVP SCH ×2 (14:47→22:06)
[2021-07-07 04:55] LABS: #Eosinphils 0.2 thou/uL (0.0-0.7); #Lymphocytes 1.2 thou/uL (1.20-3.40); #Monocytes 0.6 thou/uL (0.11-0.59); #Neutrophils 6.5 thou/uL (1.40-6.50); %Basophils 0.3 % (0.0-1.0); %Eosinophils 2.7 % (0.0-10.0); %Lymphocytes 14.2 % (21.0-51.0); %Monocytes 6.7 % (0.0-10.0); %Neutrophils 76.1 % (42.0-75.0); Hemoglobin 8.1 g/dL (14.0-18.0); Mean Corpuscular HGB CONC 30.9 g/dL (32.0-36.0); Mean Corpuscular Hemoglobin 29.4 pg (27.0-31.0); Mean Corpuscular Volume 95.1 fL (78.0-98.0); Mean Platelet Volume 8.6 fL (7.4-10.4); Platelet Count 213 thou/uL (130-400); RBC Distribution Width 15.4 % (11.5-14.5); Red Blood Cell (RBC) Count 2.75 mill/uL (4.70-6.10); White Blood Cell (WBC) Count 8.6 thou/uL (4.8-10.8)
[2021-07-07 05:17] LABS: BUN (Urea Nitrogen) 40 mg/dL (8.4-25.7); Calc. Creatinine Clearance 36 mL/min (70-130); Calcium 9.1 mg/dL (7.8-10.44); Glucose 259 mg/dL (83-110); Magnesium 2.3 mg/dL (1.6-2.6)
[2021-07-07 05:26] LABS: Anion Gap 17 mmol/L (10-20); Carbon Dioxide 35 mmol/L (23-31); Chloride 99 mmol/L (98-107); Potassium 3.6 mmol/L (3.5-5.1); Sodium 147 mmol/L (136-145)
[2021-07-07] MEDS: Metoclopramide HCl 10 MG/2 ML VIAL IVP SCH ×2 (06:27→14:44)
[2021-07-07] MEDS: Cefepime 1 GM in Sodium Chloride 0.9% 100 ML IVPB SCH (09:25)
[2021-07-07 12:28] VITALS: TEMP 97.5
[2021-07-07 16:32] VITALS: BP 128/59
== END 2021-07-07 16:25 | DRG 189 ==
LOC: ERS 10:09 → ERHOLD 15:14 → 2NO 18:12 → OBSVTOIN 07-06 10:30
PROVIDERS: ADMIT Internal Medicine; ATTEND Internal Medicine
DX: J96.21 Acute and chronic respiratory failure with hypoxia (principal); G93.1 Anoxic brain damage, not elsewhere classified; N39.0 Urinary tract infection, site not specified; I13.0 Hypertensive heart and chronic kidney disease with heart failure and stage 1 through stage 4 chronic kidney disease, or unspecified chronic kidney disease; E87.0 Hyperosmolality and hypernatremia; N18.4 Chronic kidney disease, stage 4 (severe); I48.92 Unspecified atrial flutter; Z51.5 Encounter for palliative care; Z86.16 Personal history of COVID-19; Z66 Do not resuscitate; Z20.822 Contact with and (suspected) exposure to COVID-19; F03.90 Unspecified dementia, unspecified severity, without behavioral disturbance, psychotic disturbance, mood disturbance, and anxiety; R13.12 Dysphagia, oropharyngeal phase; E11.22 Type 2 diabetes mellitus with diabetic chronic kidney disease; J42 Unspecified chronic bronchitis; I50.9 Heart failure, unspecified; E87.6 Hypokalemia; D63.1 Anemia in chronic kidney disease; B96.5 Pseudomonas (aeruginosa) (mallei) (pseudomallei) as the cause of diseases classified elsewhere; I44.1 Atrioventricular block, second degree; G30.9 Alzheimer's disease, unspecified; I25.5 Ischemic cardiomyopathy; I25.10 Atherosclerotic heart disease of native coronary artery without angina pectoris; F02.80 Dementia in other diseases classified elsewhere, unspecified severity, without behavioral disturbance, psychotic disturbance, mood disturbance, and anxiety; Z79.899 Other long term (current) drug therapy; Z79.4 Long term (current) use of insulin; Z79.51 Long term (current) use of inhaled steroids; Z91.19 Patient's noncompliance with other medical treatment and regimen; Z86.74 Personal history of sudden cardiac arrest
CPT/HCPCS: 36415; 36416; 51701; 80048; 80053; 81003; 81015; 82553; 83605; 83735; 83880; 84100; 84443; 84484; 85025; 87040; 87077; 87086; 87186; 93005; 93010; 96365; 96367; 96375; 96376; G0378; J0692; J0696; J1815; J1940; J2765; J3475; J3490

== ENCOUNTER 2021-07-08 05:20 | Emergency (ER) | payer MEDICARE, MEDICAID ==
[2021-07-08] MEDS ORDERED: GASTROGRAFIN 30 ML BOT ONE (09:47)
== END 2021-07-08 10:00 | disposition home or self-care (01) ==
LOC: ERS 05:20
DX: K94.23 Gastrostomy malfunction (principal); I13.0 Hypertensive heart and chronic kidney disease with heart failure and stage 1 through stage 4 chronic kidney disease, or unspecified chronic kidney disease; E11.22 Type 2 diabetes mellitus with diabetic chronic kidney disease; N18.9 Chronic kidney disease, unspecified; I50.9 Heart failure, unspecified; F03.90 Unspecified dementia, unspecified severity, without behavioral disturbance, psychotic disturbance, mood disturbance, and anxiety; I48.91 Unspecified atrial fibrillation
CPT/HCPCS: 43762; 74018; Q9963

== ENCOUNTER 2021-07-15 02:35 | Emergency (ER) | payer MEDICARE, MEDICAID | END 2021-07-15 04:27 | disposition home or self-care (01) | LOC: ERS 02:35 | DX: K94.20 Gastrostomy complication, unspecified (principal); I13.0 Hypertensive heart and chronic kidney disease with heart failure and stage 1 through stage 4 chronic kidney disease, or unspecified chronic kidney disease; I50.9 Heart failure, unspecified; N18.9 Chronic kidney disease, unspecified | CPT/HCPCS: 43762; 74018 ==

== ENCOUNTER 2021-07-21 15:30 | Emergency (ER) | payer MEDICARE, MEDICAID | END 2021-07-21 18:40 | disposition home or self-care (01) | LOC: ERS 15:30 | DX: K94.23 Gastrostomy malfunction (principal); I13.0 Hypertensive heart and chronic kidney disease with heart failure and stage 1 through stage 4 chronic kidney disease, or unspecified chronic kidney disease; E11.22 Type 2 diabetes mellitus with diabetic chronic kidney disease; N18.9 Chronic kidney disease, unspecified; I50.9 Heart failure, unspecified; I48.91 Unspecified atrial fibrillation; J42 Unspecified chronic bronchitis; F03.90 Unspecified dementia, unspecified severity, without behavioral disturbance, psychotic disturbance, mood disturbance, and anxiety | CPT/HCPCS: 74018 ==

== ENCOUNTER 2021-07-25 08:16 | Emergency (ER) | payer MEDICARE, OTHER ==
[2021-07-25] MEDS ORDERED: GASTROGRAFIN 30 ML BOT ONE (10:56)
== END 2021-07-25 10:47 ==
LOC: ERS 08:16
DX: K94.23 Gastrostomy malfunction (principal); I48.91 Unspecified atrial fibrillation; I13.0 Hypertensive heart and chronic kidney disease with heart failure and stage 1 through stage 4 chronic kidney disease, or unspecified chronic kidney disease; E11.22 Type 2 diabetes mellitus with diabetic chronic kidney disease; N18.9 Chronic kidney disease, unspecified; I50.9 Heart failure, unspecified; F03.90 Unspecified dementia, unspecified severity, without behavioral disturbance, psychotic disturbance, mood disturbance, and anxiety; J42 Unspecified chronic bronchitis
CPT/HCPCS: 43762; 74018; Q9963